=== PATIENT | female | born 1940 | race Caucasian/White ===

== ENCOUNTER → 2018-05-18 08:13 | Outpatient (CLI) | payer MEDICARE, SELFPAY ==
[2018-05-18 08:30] LABS: Add Manual Diff / Slide Review NO; Basophils Absolute Auto 100 /uL (0-100); Basophils Percent Auto 1.1 % (0-2); Eosinophils Absolute Auto 200 /uL (0-450); Eosinophils Percent Auto 2.1 % (2-4); Hematocrit 45.9 % (36-46); Hemoglobin 15.5 g/dL (12.0-16.0); Lymphocytes Absolute Auto 1700 /uL (1100-4500); Lymphocytes Percent Auto 19.3 % (25-40); Mean Corpuscular HGB Conc 33.7 % (30-36); Mean Corpuscular Hemoglobin 29.5 PG (26-34); Mean Corpuscular Volume 87.6 fL (80-100); Monocytes Absolute Auto 800 /uL (0-900); Monocytes Percent Auto 9.2 % (3-14); Neutrophils Absolute Auto 6100 /uL (1500-7000); Neutrophils Percent Auto 68.3 % (50-75); Platelet Count 268 X10^3/uL (150-400); Red Blood Cell Count 5.24 X10^6/uL (4.0-5.2); Red Cell Distribution Width 14.8 % (11.6-14.8); White Blood Cell Count 8.9 X10^3/uL (4.5-11.0)
[2018-05-18 08:47] LABS: Alanine Aminotransferase 14 IU/L (9-52); Albumin 4.1 g/dL (3.5-5.0); Albumin Globulin Ratio 1.1 (1.0-2.8); Alkaline Phosphatase 77 U/L (38-126); Aspartate Aminotransferase 16 IU/L (14-36); Bilirubin Total 0.6 mg/dL (0.2-1.3); Blood Urea Nitrogen 12 mg/dL (7-17); Calcium 9.3 mg/dL (8.4-10.2); Carbon Dioxide 31 mmol/L (22-32); Chloride 104 mmol/L (98-107); Cholesterol 231 mg/dL (140-199); Estimated Glomerular Filt Rate 43.7 mL/min (>60); Globulin 3.6 g/dL (1.7-4.1); Glucose 97 mg/dL (80-110); HDL Cholesterol 40 mg/dL (40-60); HEMOLYSIS 25 (0-50); LDL Cholesterol Calculated 154 mg/dL (<100); Potassium 5.3 mmol/L (3.4-5.1); Sodium 143 mmol/L (137-145); Total Protein 7.7 g/dL (6.3-8.2); Triglycerides 185 mg/dL (35-150)
[2018-05-18 09:33] LABS: TSH w/ Reflex to FT4 3.88 uIU/mL (0.47-4.68)
== END ==
PROVIDERS: PCP Family Medicine; Visit Provider Family Medicine
DX: I10 Essential (primary) hypertension (principal); I47.1 Supraventricular tachycardia; I63.9 Cerebral infarction, unspecified
CPT/HCPCS: 36415; 80053; 80061; 84443; 85025

== ENCOUNTER 2019-02-03 15:47 | Emergency (ER) | payer MEDICARE, SELFPAY ==
--- NOTE | 2019-02-03 15:55 | DI.RAD.S_ITS ---
PROCEDURE: XR CHEST 1V INDICATIONS: chest pain TECHNIQUE: One view of the chest was acquired. COMPARISON: [facility], CHEST 2 VIEW, 06/27/2007, 3:56. [facility], CHEST 2 VIEW, 04/13/2017, 11:02. [facility], CHEST 2 VIEW, 04/16/2017, 15:41. FINDINGS: Surgical changes and devices: None. Lungs and pleura: Mild interstitial prominence is seen. No pleural effusions or pneumothorax. Mediastinum: Mediastinal contours appear normal. Heart size is mildly enlarged. Atherosclerotic calcification of the aortic arch is noted. Bones and chest wall: No suspicious bony lesions. Age-appropriate bony degenerative changes are seen. Overlying soft tissues appear unremarkable. IMPRESSION: Mild cardiomegaly and mild interstitial prominence. Please correlate with patient presentation, physical examination findings, and laboratory values for congestive heart failure. Dictated by: Neto Barber M.D. on 02/03/2019 at 15:21 Approved by: Neto Barber M.D. on 02/03/2019 at 15:22
[2019-02-03 15:57] VITALS: BP 198/94; PULSE 94; RESP 14; TEMP 36.6; O2SAT 100; BMI 33.8
--- NOTE | 2019-02-03 16:07 | PC.NURSE ---
Pt arrives ambulatory. reports feeling lightheaded since this morning. started taking her BP about 1 hour ago and noticed it being high for her--190-200's systolic. 194/94 in triage HR 85 NSR. h/O CVA about 6 years ago treated in ED with tpa. denies taking blood thinners at this time. Denies CP and SOB but reports palpitations intermittently. Smoker. Lungs with scattered coarse expiratory rhonchi. placed on monitor technician, IV placed and labs drawn. EKG obtained and awaiting further orders.
[2019-02-03 16:12] LABS: Add Manual Diff / Slide Review NO; Basophils Absolute Auto 0 /uL (0-100); Basophils Percent Auto 0.1 % (0-2); Eosinophils Absolute Auto 400 /uL (0-450); Eosinophils Percent Auto 3.6 % (2-4); Hematocrit 45.7 % (36-46); Hemoglobin 15.4 g/dL (12.0-16.0); Lymphocytes Absolute Auto 3100 /uL (1100-4500); Lymphocytes Percent Auto 30.3 % (25-40); Mean Corpuscular HGB Conc 33.7 % (30-36); Mean Corpuscular Hemoglobin 29.5 PG (26-34); Mean Corpuscular Volume 87.4 fL (80-100); Monocytes Absolute Auto 900 /uL (0-900); Monocytes Percent Auto 9.2 % (3-14); Neutrophils Absolute Auto 5800 /uL (1500-7000); Neutrophils Percent Auto 56.8 % (50-75); Platelet Count 266 X10^3/uL (150-400); Red Blood Cell Count 5.23 X10^6/uL (4.0-5.2); Red Cell Distribution Width 14.9 % (11.6-14.8); White Blood Cell Count 10.1 X10^3/uL (4.5-11.0)
[2019-02-03 16:13] LABS: Prothrombin Time 11.5 SECONDS (10.1-12.7)
--- NOTE | 2019-02-03 16:15 | ED_ITS ---
HPI - General Adult <Jhonny Alford DO - Last Filed: 02/04/19 07:02> General Chief complaint: Hypertension Stated complaint: lightheaded,blood pressure is high Time Seen by Provider: 02/03/19 15:48 Source: patient Mode of arrival: Ambulatory Limitations: no limitations History of Present Illness HPI narrative: 79-year-old female with a history of hypertension. She states she takes metoprolol in the morning and in the evening. She did take her dose last evening and she did take her dose this morning. She has had an ischemic stroke in the past. That was many years ago. 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 She has had a carotid endarterectomy since that she currently only takes an aspirin a for this. She states that she woke up this morning feeling lightheaded. It was not a dizziness feeling. She also had some palpitations. She denies any chest pain or headache or changes in her vision or shortness of breath. She states that because she was not feeling well she took blood pressure at home. She states she normally runs with a systolic blood pressure in the 130s to 140s. Throughout the day it was 150 and higher and at 1 point the systolic blood pressures greater than 200. She called her daughter was a nurse who told her to come to the emergency department for evaluation. Related Data Previous Rx's Medication Instructions Recorded simvastatin [Zocor] 40 mg PO HS #90 tab 07/01/16 Nebulizer: Home Unit ea INH Q6H #1 04/13/17 metoprolol tartrate 50 mg tablet See Rx Instructions .ROUTE 01/30/19 .COMPLEX #180 tablet Allergies Allergy/AdvReac Type Severity Reaction Status Date / Time No Known Drug Allergies Allergy Verified 02/03/19 15:57 Review of Systems <Jhonny Alford DO - Last Filed: 02/04/19 07:02> Constitutional Constitutional: Denies chills, Denies fever(s) and Denies headache(s) Eyes Eyes: Denies change in vision ENT Ears, Nose, Mouth, and Throat: Denies headache(s) Cardiovascular Cardiovascular: Denies chest pain, Denies rapid heart rate, Denies edema, Denies leg edema, Reports lightheadedness, Reports palpitations, Denies dyspnea, Denies dyspnea on exertion and Denies orthopnea Respiratory Respiratory: Denies dyspnea and Denies dyspnea on exertion Gastrointestinal Gastrointestinal: Denies abdominal pain, Denies nausea and Denies vomiting Genitourinary Genitourinary: Denies dysuria Musculoskeletal Musculoskeletal: Denies myalgias and Denies arthralgias Integumentary/Breasts Skin/Breast: Denies lesions and Denies rash Neurologic Neurologic: Denies behavioral changes and Denies headache(s) Psychiatric Psychiatric: Denies behavioral changes Endocrine Endocrine: Reports palpitations Hematologic/Lymphatic Hematologic/Lymphatic: Denies easy bleeding and Denies easy bruising Patient History <Jhonny Alford DO - Last Filed: 02/04/19 07:02> Medical/Surgical History Medical History Carotid artery disease (Chronic) Chronic back pain (Chronic) Measles (Resolved) Osteoarthritis (Chronic ~2008) Partial blindness (Chronic ~1999) Scarlet fever (Resolved) Skin cancer (Chronic ~2009) Stroke (Chronic ~1999) Vertigo (Resolved) Vision disorder (Chronic) Surgical History (Updated 02/12/18 @ 22:13 by Leah Silverman) Anesthesia (Resolved) History of bilateral salpingo-oophorectomy (BSO) History of neck surgery (Resolved ~1999) Status post appendectomy Status post hysterectomy (~1969) Family History Brother Cancer Child Age: 51 Heart disease Father Heart disease Stroke Mother Heart disease Liver disease Social History marital status: Smoking Status: Current every day smoker alcohol intake: current (ON OCCASION ) substance use type: does not use Family/Social History Family History Brother Cancer Child Age: 51 Heart disease Father Heart disease Stroke Mother Heart disease Liver disease Social History marital status: Smoking Status: Current every day smoker alcohol intake: current (ON OCCASION ) substance use type: does not use Substance Use Type: does not use Exam <Jhonny Alford DO - Last Filed: 02/04/19 07:02> Initial Vital Signs Initial Vital Signs: Vital Signs Temperature 97.8 F 02/03/19 15:57 Pulse Rate 94 H 02/03/19 15:57 Respiratory Rate 14 02/03/19 15:57 Blood Pressure 198/94 H 02/03/19 15:57 Pulse Oximetry 100 02/03/19 15:57 Const General: cooperative, healthy appearing and comfortable Orientation: alert and awake HENMT Head: normal to inspection and normocephalic Resp Effort & Inspection: normal respiratory effort Auscultation: clear to auscultation bilaterally Cardio Rate: regular rate Rhythm: regular rhythm GI Inspection: non-distended Palpation: soft and No firm Skin Lesions: no lesions Rashes: no rashes Neuro General: alert and awake Cognition: normal cognition Speech: speech normal Extrem General: normal to inspection and capillary refill normal Psych Appearance: grossly normal and well kempt <Alondra Vega DO - Last Filed: 02/04/19 01:39> Initial Vital Signs Initial Vital Signs: Vital Signs Temperature 97.8 F 02/03/19 15:57 Pulse Rate 94 H 02/03/19 15:57 Respiratory Rate 14 02/03/19 15:57 Blood Pressure 198/94 H 02/03/19 15:57 Pulse Oximetry 100 02/03/19 15:57 Course <DO Usman Alejandre Last Filed: 02/04/19 07:02> Orders Ordered: Discontinued Medications Metoprolol Tartrate (Lopressor) 25 mg PO NOW ONE Stop: 02/03/19 17:05 Last Admin: 02/03/19 17:10 Dose: 25 mg Documented by: SOWMYA Vital Signs Vital signs: Vital Signs - 8 hr 02/03/19 18:28 02/03/19 19:49 Temperature 98.0 F Pulse Rate 60 68 Respiratory Rate 18 20 Blood Pressure 179/84 H Blood Pressure [Left Arm] 175/79 H Pulse Oximetry 98 99 <DO Usman Salguero Last Filed: 02/04/19 01:39> Orders Ordered: Discontinued Medications Metoprolol Tartrate (Lopressor) 25 mg PO NOW ONE Stop: 02/03/19 17:05 Last Admin: 02/03/19 17:10 Dose: 25 mg Documented by: SOWMYA Vital Signs Vital signs: Vital Signs - 8 hr 02/03/19 18:28 02/03/19 19:49 Temperature 98.0 F Pulse Rate 60 68 Respiratory Rate 18 20 Blood Pressure 179/84 H Blood Pressure [Left Arm] 175/79 H Pulse Oximetry 98 99 Medical Decision Making <DO Usman Alejandre Last Filed: 02/04/19 07:02> Medical Records Medical records reviewed: Yes I reviewed the patient's medical records. Lab Data Lab results reviewed: Yes I reviewed the patient's lab results. Result diagrams: 02/03/19 16:00 02/03/19 16:00 Labs: Lab Results 02/03/19 02/03/19 02/03/19 Range/Units 16:00 16:00 16:00 WBC 10.1 (4.5-11.0) X10^3/uL RBC 5.23 H (4.0-5.2) X10^6/uL Hgb 15.4 (12.0-16.0) g/dL Hct 45.7 (36-46) % MCV 87.4 (80-100) fL MCH 29.5 (26-34) PG MCHC 33.7 (30-36) % RDW 14.9 H (11.6-14.8) % Plt Count 266 (150-400) X10^3/uL Neut % (Auto) 56.8 (50-75) % Lymph % (Auto) 30.3 (25-40) % [place] % (Auto) 9.2 (3-14) % Eos % (Auto) 3.6 (2-4) % Baso % (Auto) 0.1 (0-2) % Neut # (Auto) 5800 (9788-1669) /uL Lymph # (Auto) 3100 (8169-2888) /uL [place] # (Auto) 900 (0-900) /uL Eos # (Auto) 400 (0-450) /uL Baso # (Auto) 0 (0-100) /uL PT 11.5 (10.1-12.7) SECONDS INR 1.0 (0.9-1.3) APTT 31 (26.4-36.2) SECONDS Sodium 139 (137-145) mmol/L Potassium 4.0 (3.4-5.1) mmol/L Chloride 100 (98-107) mmol/L Carbon Dioxide 27 (22-32) mmol/L BUN 12 (7-17) mg/dL Creatinine 1.00 (0.52-1.04) mg/dL Estimated GFR 53.8 L (>60) mL/min BUN/Creatinine Ratio 12.0 (6-22) Glucose 92 (80-110) mg/dL Calcium 9.6 (8.4-10.2) mg/dL Total Bilirubin 0.8 (0.2-1.3) mg/dL AST 23 (14-36) IU/L ALT 8 L (9-52) IU/L Alkaline Phosphatase 83 (38-126) U/L Total Creatine Kinase 52 (30-135) U/L CK-MB (CK-2) TNP CK-MB (CK-2) Rel Index TNP Troponin I 0.013 (0.01-0.034) ng/mL Total Protein 7.9 (6.3-8.2) g/dL Albumin 4.4 (3.5-5.0) g/dL Globulin 3.5 (1.7-4.1) g/dL Albumin/Globulin Ratio 1.3 (1.0-2.8) Lipase 60 (23-300) U/L 02/03/19 Range/Units 18:00 WBC (4.5-11.0) X10^3/uL RBC (4.0-5.2) X10^6/uL Hgb (12.0-16.0) g/dL Hct (36-46) % MCV (80-100) fL MCH (26-34) PG MCHC (30-36) % RDW (11.6-14.8) % Plt Count (150-400) X10^3/uL Neut % (Auto) (50-75) % Lymph % (Auto) (25-40) % [place] % (Auto) (3-14) % Eos % (Auto) (2-4) % Baso % (Auto) (0-2) % Neut # (Auto) (1089-7940) /uL Lymph # (Auto) (9313-6246) /uL [place] # (Auto) (0-900) /uL Eos # (Auto) (0-450) /uL Baso # (Auto) (0-100) /uL PT (10.1-12.7) SECONDS INR (0.9-1.3) APTT (26.4-36.2) SECONDS Sodium (137-145) mmol/L Potassium (3.4-5.1) mmol/L Chloride (98-107) mmol/L Carbon Dioxide (22-32) mmol/L BUN (7-17) mg/dL Creatinine (0.52-1.04) mg/dL Estimated GFR (>60) mL/min BUN/Creatinine Ratio (6-22) Glucose (80-110) mg/dL Calcium (8.4-10.2) mg/dL Total Bilirubin (0.2-1.3) mg/dL AST (14-36) IU/L ALT (9-52) IU/L Alkaline Phosphatase (38-126) U/L Total Creatine Kinase (30-135) U/L CK-MB (CK-2) CK-MB (CK-2) Rel Index Troponin I 0.016 (0.01-0.034) ng/mL Total Protein (6.3-8.2) g/dL Albumin (3.5-5.0) g/dL Globulin (1.7-4.1) g/dL Albumin/Globulin Ratio (1.0-2.8) Lipase (23-300) U/L ECG Data Attestation: I personally reviewed and interpreted this ECG as follows: Prior ECG tracings: available for review Interpretation: Sinus rhythm Ventricular rate of [address] depression V3 V4 V5 V6 ST depressions the same has an EKG from 2010 MDM Narrative Medical decision making narrative: Patient without chest pain, no headache, no focal neuro deficits that are new. Not in heart failure. ST depressions laterally on the EKG but these are not new. Initial troponin was negative. R epeat troponin ordered. Care turned over to night provider to follow up on troponin disposition. <Alondra Vega, - Last Filed: 02/04/19 01:39> Lab Data Lab results reviewed: Yes I reviewed the patient's lab results. Labs: Lab Results 02/03/19 02/03/19 02/03/19 Range/Units 16:00 16:00 16:00 WBC 10.1 (4.5-11.0) X10^3/uL RBC 5.23 H (4.0-5.2) X10^6/uL Hgb 15.4 (12.0-16.0) g/dL Hct 45.7 (36-46) % MCV 87.4 (80-100) fL MCH 29.5 (26-34) PG MCHC 33.7 (30-36) % RDW 14.9 H (11.6-14.8) % Plt Count 266 (150-400) X10^3/uL Neut % (Auto) 56.8 (50-75) % Lymph % (Auto) 30.3 (25-40) % [place] % (Auto) 9.2 (3-14) % Eos % (Auto) 3.6 (2-4) % Baso % (Auto) 0.1 (0-2) % Neut # (Auto) 5800 (0336-6016) /uL Lymph # (Auto) 3100 (8352-3911) /uL [place] # (Auto) 900 (0-900) /uL Eos # (Auto) 400 (0-450) /uL Baso # (Auto) 0 (0-100) /uL PT 11.5 (10.1-12.7) SECONDS INR 1.0 (0.9-1.3) APTT 31 (26.4-36.2) SECONDS Sodium 139 (137-145) mmol/L Potassium 4.0 (3.4-5.1) mmol/L Chloride 100 (98-107) mmol/L Carbon Dioxide 27 (22-32) mmol/L BUN 12 (7-17) mg/dL Creatinine 1.00 (0.52-1.04) mg/dL Estimated GFR 53.8 L (>60) mL/min BUN/Creatinine Ratio 12.0 (6-22) Glucose 92 (80-110) mg/dL Calcium 9.6 (8.4-10.2) mg/dL Total Bilirubin 0.8 (0.2-1.3) mg/dL AST 23 (14-36) IU/L ALT 8 L (9-52) IU/L Alkaline Phosphatase 83 (38-126) U/L Total Creatine Kinase 52 (30-135) U/L CK-MB (CK-2) TNP CK-MB (CK-2) Rel Index TNP Troponin I 0.013 (0.01-0.034) ng/mL Total Protein 7.9 (6.3-8.2) g/dL Albumin 4.4 (3.5-5.0) g/dL Globulin 3.5 (1.7-4.1) g/dL Albumin/Globulin Ratio 1.3 (1.0-2.8) Lipase 60 (23-300) U/L 02/03/19 Range/Units 18:00 WBC (4.5-11.0) X10^3/uL RBC (4.0-5.2) X10^6/uL Hgb (12.0-16.0) g/dL Hct (36-46) % MCV (80-100) fL MCH (26-34) PG MCHC (30-36) % RDW (11.6-14.8) % Plt Count (150-400) X10^3/uL Neut % (Auto) (50-75) % Lymph % (Auto) (25-40) % [place] % (Auto) (3-14) % Eos % (Auto) (2-4) % Baso % (Auto) (0-2) % Neut # (Auto) (3516-6220) /uL Lymph # (Auto) (3398-5796) /uL [place] # (Auto) (0-900) /uL Eos # (Auto) (0-450) /uL Baso # (Auto) (0-100) /uL PT (10.1-12.7) SECONDS INR (0.9-1.3) APTT (26.4-36.2) SECONDS Sodium (137-145) mmol/L Potassium (3.4-5.1) mmol/L Chloride (98-107) mmol/L Carbon Dioxide (22-32) mmol/L BUN (7-17) mg/dL Creatinine (0.52-1.04) mg/dL Estimated GFR (>60) mL/min BUN/Creatinine Ratio (6-22) Glucose (80-110) mg/dL Calcium (8.4-10.2) mg/dL Total Bilirubin (0.2-1.3) mg/dL AST (14-36) IU/L ALT (9-52) IU/L Alkaline Phosphatase (38-126) U/L Total Creatine Kinase (30-135) U/L CK-MB (CK-2) CK-MB (CK-2) Rel Index Troponin I 0.016 (0.01-0.034) ng/mL Total Protein (6.3-8.2) g/dL Albumin (3.5-5.0) g/dL Globulin (1.7-4.1) g/dL Albumin/Globulin Ratio (1.0-2.8) Lipase (23-300) U/L Imaging Data Chest x-ray: Radiologist's impression: PROCEDURE: XR CHEST 1V INDICATIONS: chest pain TECHNIQUE: One view of the chest was acquired. COMPARISON: [facility], CHEST 2 VIEW, 06/27/2007, 3:56. [facility], CHEST 2 VIEW, 04/13/2017, 11:02. [facility], CHEST 2 VIEW, 04/16/2017, 15:41. FINDINGS: Surgical changes and devices: None. Lungs and pleura: Mild interstitial prominence is seen. No pleural effusions or pneumothorax. Mediastinum: Mediastinal contours appear normal. Heart size is mildly enlarged. Atherosclerotic calcification of the aortic arch is noted. Bones and chest wall: No suspicious bony lesions. Age-appropriate bony degenerative changes are seen. Overlying soft tissues appear unremarkable. IMPRESSION: Mild cardiomegaly and mild interstitial prominence. Please correlate with patient presentation, physical examination findings, and laboratory values for congestive heart failure. Dictated by: Neto Barber M.D. on 02/03/2019 at 15:21 MDM Narrative Additional Information: Patient signed out to me by Dr. Alford. I have seen evaluated patient myself. She overall is feeling better she did receive 1 dose of Lopressor in the ED blood pressure has decreased some. She has no focal deficits no concern for CVA. She has no chest pain. Repeat troponin continues to be negative very minimal change. At this time I recommend she check her blood pressure at home and follow up closely with her PCP she may require adjustments to her medication. I discussed all findings with the patient and , Education has been performed regarding treatment plan, diagnosis, warning signs and symptoms and a ll concerns have been addressed. Verbally agree with and understood all of the above. Discharge Plan Departure Patient Disposition: Home Clinical Impression: Hypertension Qualifiers: Hypertension type: essential hypertension Qualified Code(s): I10 - Essential (primary) hypertension Discharge Date/Time: 02/03/19 19:50 Instructions: DI for High Blood Pressure Activity Restrictions/Additional Instructions: Recommend that you continue all of your medications as directed. On Tuesday contact your primary provider for follow-up. Return to the emergency department for any new or worsening symptoms Take your nightly dose of blood pressure medication as prescribed Recommend taking blood pressure once daily recording it and bring in to your PCP you may require further blood pressure medication changes Prescriptions: No Action simvastatin [Zocor] 40 MG tablet 40 mg PO HS Qty: 90 RF: 3 Nebulizer: Home Unit INH Q6H Qty: 1 RF: 99 metoprolol tartrate 50 mg tablet See Rx Instructions .ROUTE .COMPLEX Qty: 180 RF: 1 Referrals: Brian Ordonez MD [Primary Care Provider] -
[2019-02-03 16:16] LABS: PTT Partial Thromboplastin Tim 31 SECONDS (26.4-36.2)
[2019-02-03 16:24] LABS: Alanine Aminotransferase 8 IU/L (9-52); Albumin 4.4 g/dL (3.5-5.0); Albumin Globulin Ratio 1.3 (1.0-2.8); Alkaline Phosphatase 83 U/L (38-126); Aspartate Aminotransferase 23 IU/L (14-36); Bilirubin Total 0.8 mg/dL (0.2-1.3); Blood Urea Nitrogen 12 mg/dL (7-17); Calcium 9.6 mg/dL (8.4-10.2); Carbon Dioxide 27 mmol/L (22-32); Chloride 100 mmol/L (98-107); Creatine Kinase 52 U/L (30-135); Estimated Glomerular Filt Rate 53.8 mL/min (>60); Globulin 3.5 g/dL (1.7-4.1); Glucose 92 mg/dL (80-110); Lipase 60 U/L (23-300); Sodium 139 mmol/L (137-145); Total Protein 7.9 g/dL (6.3-8.2)
[2019-02-03 16:26] LABS: HEMOLYSIS 65 (0-50)
[2019-02-03 16:35] LABS: Troponin I 0.013 ng/mL (0.01-0.034)
[2019-02-03 16:42] VITALS: BP 188/80; PULSE 62; RESP 16; O2SAT 98
[2019-02-03] MEDS: METOPROLOL IR 25 MG TABLET PO (17:10)
[2019-02-03 17:14] VITALS: BP 189/77; PULSE 66; O2SAT 98
--- NOTE | 2019-02-03 18:07 | PC.NURSE ---
2nd trop drawn and sent. pt OOB to BR with stready gait. appear well. denies pain at this time. will continue to monitor
[2019-02-03 18:28] VITALS: BP 175/79; PULSE 60; RESP 18; O2SAT 98
[2019-02-03 19:22] LABS: Troponin I 0.016 ng/mL (0.01-0.034)
[2019-02-03 19:49] VITALS: BP 179/84; PULSE 68; RESP 20; TEMP 36.7; O2SAT 99
== END 2019-02-03 19:50 | disposition home or self-care (01) ==
PROVIDERS: Emergency Medicine; Emergency Provider Emergency Medicine; Family Provider Family Medicine; PCP Family Medicine
DX: I10 Essential (primary) hypertension (principal); R07.9 Chest pain, unspecified
CPT/HCPCS: 36415; 71045; 80053; 82550; 83690; 84484; 85025; 85610; 85730; 93005; 99283; 99285

== ENCOUNTER → 2020-05-26 12:01 | Outpatient (CLI) | payer MEDICARE, SELFPAY ==
[2020-05-26 12:47] LABS: Add Manual Diff / Slide Review NO; Basophils Absolute Auto 100 /uL (0-100); Basophils Percent Auto 1.2 % (0-2); Eosinophils Absolute Auto 200 /uL (0-450); Eosinophils Percent Auto 2.4 % (2-4); Hematocrit 41.7 % (36-46); Hemoglobin 14.2 g/dL (12.0-16.0); Lymphocytes Absolute Auto 2100 /uL (1100-4500); Lymphocytes Percent Auto 24.7 % (25-40); Mean Corpuscular HGB Conc 34.1 % (30-36); Mean Corpuscular Hemoglobin 29.9 PG (26-34); Mean Corpuscular Volume 87.7 fL (80-100); Monocytes Absolute Auto 700 /uL (0-900); Monocytes Percent Auto 8.1 % (3-14); Neutrophils Absolute Auto 5400 /uL (1500-7000); Neutrophils Percent Auto 63.6 % (50-75); Platelet Count 231 X10^3/uL (150-400); Red Blood Cell Count 4.75 X10^6/uL (4.0-5.2); Red Cell Distribution Width 14.5 % (11.6-14.8); White Blood Cell Count 8.5 X10^3/uL (4.5-11.0)
[2020-05-26 13:41] LABS: Alanine Aminotransferase 11 IU/L (<35); Albumin Globulin Ratio 1.5 (1.0-2.8); Alkaline Phosphatase 68 U/L (38-126); Aspartate Aminotransferase 17 IU/L (14-36); BUN Creatinine Ratio 15.9 (6-22); Bilirubin Total 0.4 mg/dL (0.2-1.3); Blood Urea Nitrogen 18 mg/dL (7-17); Calcium 9.1 mg/dL (8.4-10.2); Carbon Dioxide 30 mmol/L (22-32); Chloride 102 mmol/L (98-107); Estimated Glomerular Filt Rate 46.6 mL/min (>60); Globulin 2.6 g/dL (1.7-4.1); Glucose 112 mg/dL (80-110); HEMOLYSIS < 15 (0-50); Sodium 140 mmol/L (137-145); Total Protein 6.6 g/dL (6.3-8.2)
[2020-05-26 14:11] LABS: TSH w/ Reflex to FT4 2.35 uIU/mL (0.47-4.68)
== END ==
PROVIDERS: Family Provider Family Medicine; PCP Family Medicine; Referring Provider Family Medicine; Visit Provider Family Medicine
DX: I10 Essential (primary) hypertension (principal); I63.9 Cerebral infarction, unspecified
CPT/HCPCS: 36415; 80053; 84443; 85025

== ENCOUNTER → 2021-01-07 07:07 | Outpatient (CLI) | payer MEDICARE, SELFPAY ==
[2021-01-07 08:57] LABS: BUN Creatinine Ratio 11.3 (6-22); Blood Urea Nitrogen 13 mg/dL (7-17); Calcium 9.4 mg/dL (8.4-10.2); Carbon Dioxide 32 mmol/L (22-32); Chloride 106 mmol/L (98-107); Cholesterol 233 mg/dL (140-199); Estimated Glomerular Filt Rate 45.6 mL/min (>60); Glucose 85 mg/dL (80-110); HDL Cholesterol 42 mg/dL (40-60); HEMOLYSIS < 15 (0-50); LDL Cholesterol Calculated 155 mg/dL (<100); Sodium 142 mmol/L (137-145); Triglycerides 180 mg/dL (35-150)
== END ==
PROVIDERS: Family Provider Family Medicine; PCP Family Medicine; Referring Provider Family Medicine; Visit Provider Family Medicine
DX: E78.2 Mixed hyperlipidemia (principal); I10 Essential (primary) hypertension; N18.9 Chronic kidney disease, unspecified
CPT/HCPCS: 36415; 80048; 80061

== ENCOUNTER 2021-02-01 06:48 | Emergency (ER) | payer MEDICARE, SELFPAY ==
[2021-02-01] VITALS (21 sets, daily range): BP systolic 194–245; BP diastolic 83–112; PULSE 52–63; RESP 16–30; TEMP 36.9; O2SAT 93–99
--- NOTE | 2021-02-01 07:30 | ED.GENADULT ---
HPI - General Adult General Chief complaint: Hypertension Stated complaint: blood pressure high x2 days Time Seen by Provider: 02/01/21 06:56 Source: patient Mode of arrival: Ambulatory History of Present Illness HPI narrative: Patient is a 81-year-old female. History of high blood pressure. States she only takes metoprolol twice a day for her blood pressure. She states that yesterday she took her morning dose of the medicine. During the afternoon she stood up became somewhat lightheaded. She took her blood pressure and it will was 190 over 90s. She states the lightheadedness resolved. Had no other symptoms throughout the day/night. Did take her evening dose of metoprolol yesterday afternoon. Woke up this morning. Has no symptoms. Took her blood pressure. Was elevated once again. Took an extra dose of her metoprolol this morning. She states that her primary doctor told her that she could do this. She has no headache. No chest pain. No shortness of breath. No lower extremity swelling. 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 No other new neurologic symptoms to include numbness and tingling in her arms or legs. Afebrile. She does have back pain. This is been going on for several weeks. She has had diverticulitis in the past. She states that this is similar to when she had diverticulitis. She is also constipated. No urinary symptoms. No nausea vomiting. No blood in her stool. The last time she had diverticulitis she did have an abscess that needed drained. Related Data Previous Rx's Medication Instructions Recorded metoprolol tartrate 50 mg tablet See Rx Instructions .ROUTE 07/30/19 .COMPLEX #180 tablet atorvastatin 40 mg tablet 40 mg PO DAILY #90 tab 11/27/19 lisinopril 10 mg tablet 10 mg PO DAILY #90 tab 05/30/20 amoxicillin 875 mg-potassium 1 tab PO Q12H 10 Days #20 tab 02/01/21 clavulanate 125 mg tablet (Augmentin) Allergies Allergy/AdvReac Type Severity Reaction Status Date / Time No Known Drug Allergies Allergy Verified 05/30/20 08:47 Review of Systems Constitutional Constitutional: Denies fever(s) and Denies headache(s) Eyes Eyes: Reports system reviewed and no additional complaints, except as documented ENT Ears, Nose, Mouth, and Throat: Reports system reviewed and no additional complaints, except as documented, Reports as per HPI and Denies headache(s) Cardiovascular Cardiovascular: Reports as per HPI and Reports system reviewed and no additional complaints, except as documented Respiratory Respiratory: Reports as per HPI and Reports system reviewed and no additional complaints, except as documented Gastrointestinal Gastrointestinal: Reports as per HPI and Reports system reviewed and no additional complaints, except as documented Genitourinary Genitourinary: Reports system reviewed and no additional complaints, except as documented Musculoskeletal Musculoskeletal: Reports system reviewed and no additional complaints, except as documented Integumentary/Breasts Skin/Breast: Reports system reviewed and no additional complaints, except as documented Neurologic Neurologic: Denies headache(s) Psychiatric Psychiatric: Reports system reviewed and no additional complaints, except as documented Hematologic/Lymphatic On Anticoagulants: No Allergic/Immunologic Allergic/Immunologic: Reports system reviewed and no additional complaints, except as documented Patient History Medical History Carotid artery disease Chronic back pain Measles Osteoarthritis (~2008) Partial blindness (~1999) Pyelonephritis Scarlet fever Skin cancer (~2009) Stroke (~1999) Vertigo Vision disorder Surgical History (Updated 02/12/18 @ 22:13 by Leah Silverman) Anesthesia History of bilateral salpingo-oophorectomy (BSO) History of neck surgery (~1999) Status post appendectomy Status post hysterectomy (~1969) Family History Brother Cancer Child Age: 53 Heart disease Father Heart disease Stroke Mother Heart disease Liver disease Social History marital status: Smoking Status: Current every day smoker alcohol intake: current substance use type: does not use Smoking Status: Current every day smoker Substance Use Type: does not use Exam Initial Vital Signs Initial Vital Signs: Vital Signs Temperature 98.4 F 02/01/21 07:20 Pulse Rate 61 02/01/21 07:20 Respiratory Rate 22 02/01/21 07:20 Blood Pressure 245/112 H 02/01/21 07:20 Pulse Oximetry 99 02/01/21 07:20 Const General: cooperative, healthy appearing and comfortable [facility] Head: normal to inspection and normocephalic Eyes General: appearance normal, both eyes and all related structures Resp Effort & Inspection: normal respiratory effort Auscultation: clear to auscultation bilaterally Cardio Rate: regular rate Rhythm: regular rhythm GI Inspection: normal to inspection Back/Spine/Pelvis Back: normal to inspection Skin General: no rashes or lesions noted Neuro General: patient alert, patient awake, patient oriented x3 and moves all extremities Extrem General: normal to inspection and capillary refill normal Psych Appearance: grossly normal and well kempt Course Orders Ordered: ED Orders 02/01/21 07:30 Complete Blood Count AUTO DIFF Stat Comprehensive Metabolic Panel Stat Lipase Stat Troponin & CK Cardiac Panel Stat 02/01/21 07:35 XR chest 1V Stat EKG-12 Lead Stat 02/01/21 07:42 CT abdomen pelvis w con Stat Discontinued Medications Sodium Chloride (Normal Saline 0.9%) 1,000 mls @ 1,000 mls/hr IV BOLUS ONE Stop: 02/01/21 08:41 Last Infusion: 02/01/21 10:22 Dose: 0 mls/hr Documented by: Admin: 02/01/21 08:05 Dose: 1,000 mls/hr Documented by: BINA Lisinopril (Lisinopril 10 Mg Tablet) 10 mg PO NOW ONE Stop: 02/01/21 07:44 Last Admin: 02/01/21 08:03 Dose: 10 mg Documented by: BINA Vital Signs Vital signs: Vital Signs - 8 hr 02/01/21 07:20 02/01/21 07:36 02/01/21 08:00 Temperature 98.4 F Pulse Rate 61 60 56 L Respiratory Rate 22 27 H 29 H Blood Pressure 245/112 H 233/107 H Pulse Oximetry 99 99 98 02/01/21 08:03 02/01/21 08:04 02/01/21 08:28 Temperature Pulse Rate 56 L 56 L 60 Respiratory Rate 30 H Blood Pressure 229/102 H 229/102 H Pulse Oximetry 98 98 02/01/21 08:34 02/01/21 08:36 02/01/21 08:45 Temperature Pulse Rate 61 57 L 53 L Respiratory Rate Blood Pressure 221/93 H 206/83 H Pulse Oximetry 97 99 98 02/01/21 09:00 02/01/21 09:01 02/01/21 09:15 Temperature Pulse Rate 53 L 54 L 54 L Respiratory Rate Blood Pressure 208/84 H 199/88 H Pulse Oximetry 98 98 98 02/01/21 09:30 02/01/21 09:45 02/01/21 09:52 Temperature Pulse Rate 52 L 63 60 Respiratory Rate 18 Blood Pressure 196/85 H 195/104 H Pulse Oximetry 98 93 97 02/01/21 10:00 02/01/21 10:15 02/01/21 10:16 Temperature Pulse Rate 59 L 54 L Respiratory Rate 18 16 Blood Pressure 226/91 H 219/90 H Pulse Oximetry 97 97 Medical Decision Making Lab Data Lab results reviewed: Yes I reviewed the patient's lab results. Result diagrams: 02/01/21 07:30 02/01/21 07:30 Labs: Lab Results 02/01/21 02/01/21 Range/Units 07:30 07:30 WBC 8.6 (4.5-11.0) X10^3/uL RBC 5.31 H (4.0-5.2) X10^6/uL Hgb 15.6 (12.0-16.0) g/dL Hct 46.6 H (36-46) % MCV 87.8 (80-100) fL MCH 29.3 (26-34) PG MCHC 33.4 (30-36) % RDW 15.2 H (11.6-14.8) % Plt Count 274 (150-400) X10^3/uL Neut % (Auto) 71.0 (50-75) % Lymph % (Auto) 17.1 L (25-40) % [place] % (Auto) 8.9 (3-14) % Eos % (Auto) 2.2 (2-4) % Baso % (Auto) 0.8 (0-2) % Neut # (Auto) 6100 (6415-7480) /uL Lymph # (Auto) 1500 (0303-5035) /uL [place] # (Auto) 800 (0-900) /uL Eos # (Auto) 200 (0-450) /uL Baso # (Auto) 100 (0-100) /uL Sodium 137 (137-145) mmol/L Potassium 4.1 (3.4-5.1) mmol/L Chloride 101 (98-107) mmol/L Carbon Dioxide 31 (22-32) mmol/L BUN 11 (7-17) mg/dL Creatinine 1.02 (0.52-1.04) mg/dL Estimated GFR 52.3 L (>60) mL/min BUN/Creatinine Ratio 10.8 (6-22) Glucose 105 (80-110) mg/dL Calcium 9.5 (8.4-10.2) mg/dL Total Bilirubin 0.7 (0.2-1.3) mg/dL AST 19 (14-36) IU/L ALT 10 (<35) IU/L Alkaline Phosphatase 86 (38-126) U/L Total Creatine Kinase 36 (30-135) U/L CK-MB (CK-2) TNP CK-MB (CK-2) Rel Index TNP Troponin I < 0.012 (0.01-0.034) ng/mL Total Protein 7.5 (6.3-8.2) g/dL Albumin 4.3 (3.5-5.0) g/dL Globulin 3.2 (1.7-4.1) g/dL Albumin/Globulin Ratio 1.3 (1.0-2.8) Lipase 66 (23-300) U/L Imaging Data Chest x-ray: Radiologist's Impression: [address] [id number] ReportSigned Patient: Stefanie Galaviz [facility]#: [id number]: 2Acct:[id number]/Sex: 81 / FDate of Service: 02/01/21Loc: EDAccession Number: [id number] Procedure: XR chest 1V Ordering Provider: Jhonny Alford D.O. PROCEDURE: XR CHEST 1V INDICATIONS: chest pain TECHNIQUE: One view of the chest was acquired. COMPARISON: [facility], CHEST 2 VIEW, 04/13/2017, 11:02. [facility], CHEST 2 VIEW, 04/16/2017, 15:41. [facility], XR CHEST 1V, 02/03/2019, 16:15. FINDINGS: Surgical changes and devices: None. Lungs and pleura: On this semiupright portable chest examination, no large pneumothorax or large pleural effusions are seen. No focal infiltrates are seen. Mediastinum: The cardiac contours are within normal limits for portable technique. The aorta demonstrates calcification and tortuosity. Bones and chest wall: Age-appropriate bony degenerative changes are seen. No suspicious bony lesions. Overlying soft tissues appear unremarkable. IMPRESSION: Portable chest within normal limits. Dictated by: Neto Barber M.D. on 02/01/2021 at 7:09 Approved by: Neto Barber M.D. on 02/01/2021 at 7:10 CT scan - abdomen/pelvis: Radiologist's Impression: [address] [id number] Scan ReportSigned Patient: Stefanie Galaviz [facility]#: [id number]: 1940cct:[id number]/Sex: 81 / FDate of Service: 02/01/21Loc: EDAccession Number: [id number] Procedure: CT abdomen pelvis w con Ordering Provider: Jhonny Alford D.O. PROCEDURE: CT ABDOMEN PELVIS W CON INDICATIONS: Left-sided abdominal pain, back pain TECHNIQUE: After the administration of oral and IV contrast, axial sections were acquired from the lung bases to the pubic symphysis. Coronal and sagittal reformats were performed. For radiation dose reduction, the following was used: automated exposure control, adjustment of mA and/or kV according to patient size. COMPARISON: [facility], CT, ABDOMEN/PELVIS WITH CONTRAST, 04/16/2017, 17:18. FINDINGS: Image quality: Excellent. Lung bases: Mild emphysematous changes are seen at the lung bases. Heart: No significant findings. ABDOMEN: Liver: Unremarkable. Gallbladder: Unremarkable. Biliary ducts: Unremarkable. Pancreas: Unremarkable. Spleen: Unremarkable. Adrenal Glands: Unremarkable. Kidneys and Ureters: Areas of focal volume loss can be seen involving the renal parenchyma, left worse than right. No suspicious masses are seen. There is no hydronephrosis. Stomach and Bowel: There is moderate wall thickening seen involving the sigmoid colon, with mild surrounding inflammatory change. No adjacent abscess is seen. Moderate diverticular formation can be seen throughout this region. No areas of bowel wall thickening are seen elsewhere. No dilated loops of small bowel are seen. Peritoneum: No abnormal intraperitoneal fluid. No free air. Ventral Wall: No hernia. Abdominal Nodes: No retroperitoneal or mesenteric adenopathy by size criteria. Vessels: The aorta demonstrates calcification and irregularity, with mural thrombus. The aorta is mildly aneurysmal, measuring up to 3.3 cm AP. The IVC is unremarkable. PELVIS: Pelvic Organs: This patient is status post hysterectomy. No adnexal masses are seen. Bladder: Unremarkable. Pelvic Nodes: No enlarged lymph nodes. Miscellaneous: No inguinal hernias are seen. Bones: Age-appropriate bony degenerative changes are seen. Qihp-ig-[id number] levoconvex scoliotic curvature is seen. There is a remote T11 compression deformity as well as a stable remote L2 compression deformity. A presumed hemangioma can be seen within T10. IMPRESSION: Izqv-mu-sntrcvvs diverticulitis, without findings of perforation or abscess. Areas of focal volume loss can be seen involving both kidneys, left worse than right. Please correlate with prior episodes of infarction or infection. Irregular aorta, with mild aneurysmal dilatation and mural thrombus, which has worsened compared to 2017. Incidental note is made of: Mild emphysematous change Apparent T10 vertebral body hemangioma Remote T11 and L2 compression deformities Hysterectomy Dictated by: Neto Barber M.D. on 02/01/2021 at 7:58 Approved by: Neto Barber M.D. on 02/01/2021 at 8:04 ECG Data Attestation: I personally reviewed and interpreted this ECG as follows: Interpretation: Sinus bradycardia Ventricular rate of 58 Normal axis Normal QRS Normal QTC Artifact noted No ST T wave changes MDM Narrative Medical decision making narrative: Patient is asymptomatic from her hypertension. She is on metoprolol as well as lisinopril. Her CT scan does show diverticulitis. We will treat her with antibiotics for this. Also shows a abdominal aortic aneurysm which I do not think is the cause of her back pain. Will have her contact her primary doctor for this. Will increase her lisinopril from 10 mg a day to 20 mg a day. She was given return precautions and follow-up instructions. She expressed understanding and agreement Discharge Plan Departure Patient Disposition: Home Clinical Impression: Hypertension, Abdominal aortic aneurysm, Diverticulitis Instructions: DI for Diverticulitis, DI for High Blood Pressure Activity Restrictions/Additional Instructions: Start taking the antibiotics as directed for the diverticulitis. This evening go ahead and take your normal evening dose of your metoprolol. Starting tomorrow increase your lisinopril from 10 mg a day to 20 mg a day. There was a incidental finding of a abdominal aortic aneurysm on your CT scan today. You do need to talk with your primary doctor regarding this as far as follow-up. Return to the emergency department for any new or worsening symptoms. Prescriptions: New amoxicillin-pot clavulanate [Augmentin] 875-125 mg tablet 1 tab PO Q12H 10 Days Qty: 20 RF: 0 No Action atorvastatin 40 mg tablet 40 mg PO DAILY Qty: 90 RF: 3 lisinopril 10 mg tablet 10 mg PO DAILY Qty: 90 RF: 3 metoprolol tartrate 50 mg tablet See Rx Instructions .ROUTE .COMPLEX Qty: 180 RF: 1 Referrals: Brian Ordonez MD [Primary Care Provider] -
--- NOTE | 2021-02-01 07:35 | DI.RAD.S_ITS ---
PROCEDURE: XR CHEST 1V INDICATIONS: chest pain TECHNIQUE: One view of the chest was acquired. COMPARISON: [facility], , CHEST 2 VIEW, 04/13/2017, 11:02. [facility], , CHEST 2 VIEW, 04/16/2017, 15:41. [facility], , XR CHEST 1V, 02/03/2019, 16:15. FINDINGS: Surgical changes and devices: None. Lungs and pleura: On this semiupright portable chest examination, no large pneumothorax or large pleural effusions are seen. No focal infiltrates are seen. Mediastinum: The cardiac contours are within normal limits for portable technique. The aorta demonstrates calcification and tortuosity. Bones and chest wall: Age-appropriate bony degenerative changes are seen. No suspicious bony lesions. Overlying soft tissues appear unremarkable. IMPRESSION: Portable chest within normal limits. Dictated by: Neto Barber M.D. on 02/01/2021 at 7:09 Approved by: Neto Barber M.D. on 02/01/2021 at 7:10
--- NOTE | 2021-02-01 07:42 | DI.CT.S_ITS ---
PROCEDURE: CT ABDOMEN PELVIS W CON INDICATIONS: Left-sided abdominal pain, back pain TECHNIQUE: After the administration of oral and IV contrast, axial sections were acquired from the lung bases to the pubic symphysis. Coronal and sagittal reformats were performed. For radiation dose reduction, the following was used: automated exposure control, adjustment of mA and/or kV according to patient size. COMPARISON: [facility], CT, ABDOMEN/PELVIS WITH CONTRAST, 04/16/2017, 17:18. FINDINGS: Image quality: Excellent. Lung bases: Mild emphysematous changes are seen at the lung bases. Heart: No significant findings. ABDOMEN: Liver: Unremarkable. Gallbladder: Unremarkable. Biliary ducts: Unremarkable. Pancreas: Unremarkable. Spleen: Unremarkable. Adrenal Glands: Unremarkable. Kidneys and Ureters: Areas of focal volume loss can be seen involving the renal parenchyma, left worse than right. No suspicious masses are seen. There is no hydronephrosis. Stomach and Bowel: There is moderate wall thickening seen involving the sigmoid colon, with mild surrounding inflammatory change. No adjacent abscess is seen. Moderate diverticular formation can be seen throughout this region. No areas of bowel wall thickening are seen elsewhere. No dilated loops of small bowel are seen. Peritoneum: No abnormal intraperitoneal fluid. No free air. Ventral Wall: No hernia. Abdominal Nodes: No retroperitoneal or mesenteric adenopathy by size criteria. Vessels: The aorta demonstrates calcification and irregularity, with mural thrombus. The aorta is mildly aneurysmal, measuring up to 3.3 cm AP. The IVC is unremarkable. PELVIS: Pelvic Organs: This patient is status post hysterectomy. No adnexal masses are seen. Bladder: Unremarkable. Pelvic Nodes: No enlarged lymph nodes. Miscellaneous: No inguinal hernias are seen. Bones: Age-appropriate bony degenerative changes are seen. Xevm-kv-bgvlixqj levoconvex scoliotic curvature is seen. There is a remote T11 compression deformity as well as a stable remote L2 compression deformity. A presumed hemangioma can be seen within T10. IMPRESSION: Seqt-jg-leqhukry diverticulitis, without findings of perforation or abscess. Areas of focal volume loss can be seen involving both kidneys, left worse than right. Please correlate with prior episodes of infarction or infection. Irregular aorta, with mild aneurysmal dilatation and mural thrombus, which has worsened compared to 2017. Incidental note is made of: Mild emphysematous change Apparent T10 vertebral body hemangioma Remote T11 and L2 compression deformities Hysterectomy Dictated by: Neto Barber M.D. on 02/01/2021 at 7:58 Approved by: Neto Barber M.D. on 02/01/2021 at 8:04
[2021-02-01 07:45] LABS: Add Manual Diff / Slide Review NO; Basophils Absolute Auto 100 /uL (0-100); Basophils Percent Auto 0.8 % (0-2); Eosinophils Absolute Auto 200 /uL (0-450); Eosinophils Percent Auto 2.2 % (2-4); Hematocrit 46.6 % (36-46); Hemoglobin 15.6 g/dL (12.0-16.0); Lymphocytes Absolute Auto 1500 /uL (1100-4500); Lymphocytes Percent Auto 17.1 % (25-40); Mean Corpuscular HGB Conc 33.4 % (30-36); Mean Corpuscular Hemoglobin 29.3 PG (26-34); Mean Corpuscular Volume 87.8 fL (80-100); Monocytes Absolute Auto 800 /uL (0-900); Monocytes Percent Auto 8.9 % (3-14); Neutrophils Absolute Auto 6100 /uL (1500-7000); Platelet Count 274 X10^3/uL (150-400); Red Blood Cell Count 5.31 X10^6/uL (4.0-5.2); Red Cell Distribution Width 15.2 % (11.6-14.8); White Blood Cell Count 8.6 X10^3/uL (4.5-11.0)
[2021-02-01 07:58] LABS: Alanine Aminotransferase 10 IU/L (<35); Albumin 4.3 g/dL (3.5-5.0); Albumin Globulin Ratio 1.3 (1.0-2.8); Alkaline Phosphatase 86 U/L (38-126); Aspartate Aminotransferase 19 IU/L (14-36); BUN Creatinine Ratio 10.8 (6-22); Bilirubin Total 0.7 mg/dL (0.2-1.3); Blood Urea Nitrogen 11 mg/dL (7-17); Calcium 9.5 mg/dL (8.4-10.2); Carbon Dioxide 31 mmol/L (22-32); Chloride 101 mmol/L (98-107); Creatine Kinase 36 U/L (30-135); Estimated Glomerular Filt Rate 52.3 mL/min (>60); Globulin 3.2 g/dL (1.7-4.1); Glucose 105 mg/dL (80-110); HEMOLYSIS < 15 (0-50); Lipase 66 U/L (23-300); Potassium 4.1 mmol/L (3.4-5.1); Sodium 137 mmol/L (137-145); Total Protein 7.5 g/dL (6.3-8.2)
[2021-02-01] MEDS: lisinopriL 10 MG TABLET PO (08:03)
[2021-02-01] MEDS: SODIUM CHLORIDE 0.9% 1,000 ML 1000 ML IV (08:05)
[2021-02-01 08:09] LABS: Troponin I < 0.012 ng/mL (0.01-0.034)
== END 2021-02-01 11:29 | disposition home or self-care (01) ==
PROVIDERS: Emergency Provider Emergency Medicine; Family Provider Family Medicine; PCP Family Medicine
DX: I10 Essential (primary) hypertension (principal); I71.4 Abdominal aortic aneurysm, without rupture; K57.92 Diverticulitis of intestine, part unspecified, without perforation or abscess without bleeding; R07.9 Chest pain, unspecified
CPT/HCPCS: 36415; 71045; 74177; 80053; 82550; 83690; 84484; 85025; 93005; 96360; 96361; 99285; Q9967

== ENCOUNTER 2021-02-02 11:28 | Emergency (ER) | payer MEDICARE, SELFPAY ==
[2021-02-02] VITALS (8 sets, daily range): BP systolic 159–242; BP diastolic 74–108; PULSE 55–70; RESP 14–21; TEMP 36.8; O2SAT 97–99; BMI 32.9
--- NOTE | 2021-02-02 11:40 | DI.RAD.S_ITS ---
PROCEDURE: XR CHEST 1V INDICATIONS: chest pain TECHNIQUE: One view of the chest was acquired. COMPARISON: [facility], CR, XR CHEST 1V, 02/03/2019, 16:15. [facility], CR, XR CHEST 1V, 02/01/2021, 7:52. FINDINGS: Surgical changes and devices: None. Lungs and pleura: Lungs are clear. No pleural effusions or pneumothorax. Mediastinum: Mediastinal contours appear normal. Heart size is normal. Bones and chest wall: No suspicious bony lesions. Overlying soft tissues appear unremarkable. IMPRESSION: 1. No acute cardiopulmonary disease. Dictated by: Fredo Villalta M.D. on 02/02/2021 at 12:03 Approved by: Fredo Villalta M.D. on 02/02/2021 at 12:04
[2021-02-02 11:57] LABS: Add Manual Diff / Slide Review NO; Basophils Absolute Auto 0 /uL (0-100); Basophils Percent Auto 0.3 % (0-2); Eosinophils Absolute Auto 200 /uL (0-450); Eosinophils Percent Auto 2.3 % (2-4); Hematocrit 46.1 % (36-46); Hemoglobin 15.5 g/dL (12.0-16.0); Lymphocytes Absolute Auto 2000 /uL (1100-4500); Lymphocytes Percent Auto 21.9 % (25-40); Mean Corpuscular HGB Conc 33.7 % (30-36); Mean Corpuscular Hemoglobin 29.7 PG (26-34); Monocytes Absolute Auto 800 /uL (0-900); Monocytes Percent Auto 8.6 % (3-14); Neutrophils Absolute Auto 6200 /uL (1500-7000); Neutrophils Percent Auto 66.9 % (50-75); Platelet Count 262 X10^3/uL (150-400); Red Blood Cell Count 5.24 X10^6/uL (4.0-5.2); Red Cell Distribution Width 14.4 % (11.6-14.8); White Blood Cell Count 9.3 X10^3/uL (4.5-11.0)
[2021-02-02 12:27] LABS: Alanine Aminotransferase 12 IU/L (<35); Albumin 4.3 g/dL (3.5-5.0); Albumin Globulin Ratio 1.3 (1.0-2.8); Alkaline Phosphatase 93 U/L (38-126); Aspartate Aminotransferase 24 IU/L (14-36); BUN Creatinine Ratio 12.6 (6-22); Bilirubin Total 0.8 mg/dL (0.2-1.3); Blood Urea Nitrogen 13 mg/dL (7-17); Calcium 9.9 mg/dL (8.4-10.2); Carbon Dioxide 28 mmol/L (22-32); Chloride 102 mmol/L (98-107); Creatine Kinase 40 U/L (30-135); Estimated Glomerular Filt Rate 51.7 mL/min (>60); Globulin 3.3 g/dL (1.7-4.1); Glucose 98 mg/dL (80-110); HEMOLYSIS < 15 (0-50); Lipase 70 U/L (23-300); Magnesium 1.9 mg/dL (1.6-2.3); Potassium 4.1 mmol/L (3.4-5.1); Sodium 138 mmol/L (137-145); Total Protein 7.6 g/dL (6.3-8.2)
--- NOTE | 2021-02-02 12:36 | ED.GENADULT ---
HPI - General Adult General Chief complaint: Hypertension Stated complaint: High BP Time Seen by Provider: 02/02/21 12:29 Source: patient Mode of arrival: Ambulatory Limitations: no limitations History of Present Illness HPI narrative: Patient is a 81-year-old female. I evaluated the emergency department yesterday. Was diagnosed with hypertension and also diverticulitis. Was started on antibiotics. We increased her lisinopril from 10 mg a day to 20 mg a day. She states that she went home. Slept most of yesterday afternoon until this morning. Has taking her antibiotics as directed. This morning woke up. Was feeling somewhat lightheaded. No chest pain. No shortness of breath. No lower extremity swelling. Is having back discomfort but this was attributed to her history of diverticulitis. She took her blood pressure at home. Again it was elevated with a systolic greater than 200. She stated that she did take her blood pressure medication this morning like we had discussed yesterday. He came back to the emergency department for further evaluation. Related Data Previous Rx's Medication Instructions Recorded metoprolol tartrate 50 mg tablet See Rx Instructions .ROUTE 07/30/19 .COMPLEX #180 tablet atorvastatin 40 mg tablet 40 mg PO DAILY #90 tab 11/27/19 lisinopril 10 mg tablet 10 mg PO DAILY #90 tab 05/30/20 amoxicillin 875 mg-potassium 1 tab PO Q12H 10 Days #20 tab 02/01/21 clavulanate 125 mg tablet (Augmentin) hydrocodone 5 mg-acetaminophen 325 1 tab PO Q4-6H PRN #10 tab 02/02/21 mg tablet Allergies Allergy/AdvReac Type Severity Reaction Status Date / Time No Known Drug Allergies Allergy Verified 05/30/20 08:47 Review of Systems Constitutional Constitutional: Denies headache(s) Eyes Eyes: Reports as per HPI and Reports system reviewed and no additional complaints, except as documented ENT Ears, Nose, Mouth, and Throat: Denies headache(s) Cardiovascular Cardiovascular: Reports as per HPI and Reports system reviewed and no additional complaints, except as documented Respiratory Respiratory: Reports as per HPI and Reports system reviewed and no additional complaints, except as documented Gastrointestinal Gastrointestinal: Reports system reviewed and no additional complaints, except as documented Integumentary/Breasts Skin/Breast: Reports system reviewed and no additional complaints, except as documented and Reports as per HPI Neurologic Neurologic: Denies headache(s) Hematologic/Lymphatic On Anticoagulants: No Patient History Medical History Carotid artery disease Chronic back pain Measles Osteoarthritis (~2008) Partial blindness (~1999) Pyelonephritis Scarlet fever Skin cancer (~2009) Stroke (~1999) Vertigo Vision disorder Surgical History (Updated 02/12/18 @ 22:13 by Leah Silverman) Anesthesia History of bilateral salpingo-oophorectomy (BSO) History of neck surgery (~1999) Status post appendectomy Status post hysterectomy (~1969) Family History Brother Cancer Child Age: 53 Heart disease Father Heart disease Stroke Mother Heart disease Liver disease Social History marital status: Smoking Status: Current every day smoker alcohol intake: current substance use type: does not use Smoking Status: Current every day smoker tobacco type: cigarettes alcohol intake frequency: 0-2 drinks per day Substance Use Type: does not use Exam Initial Vital Signs Initial Vital Signs: Vital Signs Temperature 98.2 F 02/02/21 11:33 Pulse Rate 63 02/02/21 11:33 Respiratory Rate 18 02/02/21 11:33 Blood Pressure 242/108 H 02/02/21 11:33 Pulse Oximetry 99 02/02/21 11:33 Const General: cooperative, healthy appearing, comfortable and well developed HENME Head: normal to inspection and normocephalic Eyes General: appearance normal, both eyes and all related structures Resp Effort & Inspection: normal respiratory effort Auscultation: clear to auscultation bilaterally Cardio Rate: regular rate Rhythm: regular rhythm GI Inspection: normal to inspection Palpation: soft and No tender Skin General: no rashes or lesions noted Neuro General: patient alert, patient awake, patient oriented x3, gait normal, moves all extremities and no meningeal signs Cognition: normal cognition Speech: speech normal Gait: normal gait Extrem General: normal to inspection and capillary refill normal Psych Appearance: grossly normal and well kempt Course Orders Ordered: ED Orders 02/02/21 11:40 XR chest 1V Stat EKG-12 Lead Stat 02/02/21 11:50 Complete Blood Count AUTO DIFF Stat Comprehensive Metabolic Panel Stat Lipase Stat Magnesium Stat Troponin & CK Cardiac Panel Stat Discontinued Medications Hydralazine HCl (Hydralazine 20 Mg/Ml Vial) 10 mg IV NOW ONE Stop: 02/02/21 12:37 Last Admin: 02/02/21 12:41 Dose: 10 mg Documented by: CATHY Vital Signs Vital signs: Vital Signs - 8 hr 02/02/21 11:33 02/02/21 12:41 02/02/21 12:59 Temperature 98.2 F Pulse Rate 63 55 L 62 Respiratory Rate 18 20 Blood Pressure 242/108 H 219/93 H 194/74 H Pulse Oximetry 99 98 02/02/21 13:00 02/02/21 13:14 02/02/21 13:34 Temperature Pulse Rate 61 68 63 Respiratory Rate 18 14 21 Blood Pressure 194/77 H 192/78 H 194/79 H Pulse Oximetry 98 98 99 02/02/21 14:01 02/02/21 14:31 Temperature Pulse Rate 65 70 Respiratory Rate 20 20 Blood Pressure 159/102 H 182/77 H Pulse Oximetry 98 97 Medical Decision Making Medical Records Medical records reviewed: Yes I reviewed the patient's medical records. Lab Data Lab results reviewed: Yes I reviewed the patient's lab results. Result diagrams: 02/02/21 11:50 02/02/21 11:50 Labs: Lab Results 02/02/21 02/02/21 Range/Units 11:50 11:50 WBC 9.3 (4.5-11.0) X10^3/uL RBC 5.24 H (4.0-5.2) X10^6/uL Hgb 15.5 (12.0-16.0) g/dL Hct 46.1 H (36-46) % MCV 88.0 (80-100) fL MCH 29.7 (26-34) PG MCHC 33.7 (30-36) % RDW 14.4 (11.6-14.8) % Plt Count 262 (150-400) X10^3/uL Neut % (Auto) 66.9 (50-75) % Lymph % (Auto) 21.9 L (25-40) % [place] % (Auto) 8.6 (3-14) % Eos % (Auto) 2.3 (2-4) % Baso % (Auto) 0.3 (0-2) % Neut # (Auto) 6200 (5935-6547) /uL Lymph # (Auto) 2000 (7387-5481) /uL [place] # (Auto) 800 (0-900) /uL Eos # (Auto) 200 (0-450) /uL Baso # (Auto) 0 (0-100) /uL Sodium 138 (137-145) mmol/L Potassium 4.1 (3.4-5.1) mmol/L Chloride 102 (98-107) mmol/L Carbon Dioxide 28 (22-32) mmol/L BUN 13 (7-17) mg/dL Creatinine 1.03 (0.52-1.04) mg/dL Estimated GFR 51.7 L (>60) mL/min BUN/Creatinine Ratio 12.6 (6-22) Glucose 98 (80-110) mg/dL Calcium 9.9 (8.4-10.2) mg/dL Magnesium 1.9 (1.6-2.3) mg/dL Total Bilirubin 0.8 (0.2-1.3) mg/dL AST 24 (14-36) IU/L ALT 12 (<35) IU/L Alkaline Phosphatase 93 (38-126) U/L Total Creatine Kinase 40 (30-135) U/L CK-MB (CK-2) TNP CK-MB (CK-2) Rel Index TNP Troponin I < 0.012 (0.01-0.034) ng/mL Total Protein 7.6 (6.3-8.2) g/dL Albumin 4.3 (3.5-5.0) g/dL Globulin 3.3 (1.7-4.1) g/dL Albumin/Globulin Ratio 1.3 (1.0-2.8) Lipase 70 (23-300) U/L ECG Data Attestation: I personally reviewed and interpreted this ECG as follows: Prior ECG tracings: available for review Interpretation: Sinus bradycardia Ventricular rate of 58 Normal axis Normal QRS Normal QTC Nonspecific ST T wave changes MDM Narrative Medical decision making narrative: Yesterday patient arrived with hypertension and also diverticulitis. She was asymptomatic at that time. Today she is hypertensive but is also lightheaded. I do want to avoid beta-blockers because of her bradycardia. She is already on metoprolol twice a day. She was given hydralazine here in the ER which did improve her blood pressure and also improved her lightheadedness. Had a discussion with her primary doctor. Plan will be is to have her keep that her metoprolol as he is. She will now start taking 20 mg of lisinopril 2 times a day. He will have his office contact her for follow-up later this week. She will continue her antibiotics for her diverticulitis. I do feel that we can hold on a head CT for now. She was given return precautions and follow-up instructions. She expressed understanding and agreement. Discharge Plan Departure Patient Disposition: Home Clinical Impression: Hypertension Instructions: DI for High Blood Pressure Activity Restrictions/Additional Instructions: I did discuss your case today with Dr. Ordonez. He would like you to continue with your current dose of metoprolol 2 times a day. He would like you to increase your lisinopril to 20 mg 2 times a day. Go ahead and take that this evening. His office will call you within the next 24 hours for a follow-up. Return to the emergency department for any new or worsening symptoms Prescriptions: New hydrocodone-acetaminophen 5-325 mg tablet 1 tab PO Q4-6H PRN (Reason: pain) Qty: 10 RF: 0 No Action atorvastatin 40 mg tablet 40 mg PO DAILY Qty: 90 RF: 3 lisinopril 10 mg tablet 10 mg PO DAILY Qty: 90 RF: 3 metoprolol tartrate 50 mg tablet See Rx Instructions .ROUTE .COMPLEX Qty: 180 RF: 1 amoxicillin-pot clavulanate [Augmentin] 875-125 mg tablet 1 tab PO Q12H 10 Days Qty: 20 RF: 0 Referrals: Brian Ordonez MD [Primary Care Provider] -
[2021-02-02 12:38] LABS: Troponin I < 0.012 ng/mL (0.01-0.034)
[2021-02-02] MEDS: HYDRALAZINE 20 MG/ML VIAL 10 MG IV (12:41)
== END 2021-02-02 15:04 | disposition home or self-care (01) ==
PROVIDERS: Emergency Provider Emergency Medicine; Family Provider Family Medicine; PCP Family Medicine
DX: I10 Essential (primary) hypertension (principal); R00.1 Bradycardia, unspecified
CPT/HCPCS: 36415; 71045; 80053; 82550; 83690; 83735; 84484; 85025; 93005; 93010; 96374; 99283; 99284; J0360

== ENCOUNTER → 2021-04-06 11:12 | Outpatient (CLI) | payer MEDICARE, SELFPAY ==
--- NOTE | 2021-04-06 11:14 | DI.RAD.S_ITS ---
PROCEDURE: XR PELVIS 1-2V INDICATIONS: back pain TECHNIQUE: 1 view(s) of the pelvis acquired. COMPARISON: None. FINDINGS: Bones: No fractures or dislocations. No suspicious bony lesions. Osseous hypertrophy and mild joint space narrowing noted in the hips bilaterally. Soft tissues: Visualized bowel gas pattern is normal. No suspicious soft tissue calcifications. IMPRESSION: [id number] bilateral hip osteoarthritis. Dictated by: Aarti Em MD, PhD on 04/06/2021 at 16:29 Approved by: Aarti Em MD, PhD on 04/06/2021 at 16:30
--- NOTE | 2021-04-06 11:14 | DI.RAD.S_ITS ---
PROCEDURE: XR LUMBAR SPINE MIN 4V INDICATIONS: back pain TECHNIQUE: Three views of the lumbar spine COMPARISON: [facility], CT, CT ABDOMEN PELVIS W CON, 02/01/2021, 8:13. FINDINGS: L2 vertebral body height loss is similar to the comparison CT. Otherwise normal vertebral body height and alignment. No listhesis. Degenerative changes at every level in the lumbar spine worst from L3-L4 through L5-S1 are similar to the comparison CT , and are overall moderate. IMPRESSION: Moderate lower lumbar spine degenerative changes. Lumbar spine MRI could be considered. Dictated by: Brian Morton M.D. on 04/06/2021 at 15:09 Approved by: Brian Morton M.D. on 04/06/2021 at 15:10
== END ==
PROVIDERS: Family Provider Family Medicine; PCP Family Medicine; Referring Provider Family Medicine; Visit Provider Family Medicine
DX: M47.816 Spondylosis without myelopathy or radiculopathy, lumbar region (principal); M47.817 Spondylosis without myelopathy or radiculopathy, lumbosacral region; M54.9 Dorsalgia, unspecified
CPT/HCPCS: 72110; 72170

== ENCOUNTER → 2021-05-06 10:40 | Outpatient (CLI) | payer MEDICARE, SELFPAY ==
[2021-05-06 12:51] LABS: Appearance Urine UA CLEAR; Bilirubin Urine UA NEGATIVE (NEGATIVE); Color Urine UA YELLOW; Glucose Urine UA NEGATIVE (Negative); Ketones Urine UA NEGATIVE (NEGATIVE); Leukocyte Esterase Urine UA NEGATIVE (NEGATIVE); Nitrite Urine UA NEGATIVE (Negative); Occult Blood Urine UA NEGATIVE (Negative); Protein Urine UA TRACE (Negative); Specific Gravity Urine UA >=1.030 (1.000-1.035); Urobilinogen Urine UA 0.2 E.U./dL (0.2)
[2021-05-06 13:05] LABS: RBC Urine None Seen (0-5/HPF); Squamous Epithelial Cell Urine 5-10 /HPF (0-5/HPF); WBC Urine 1-5/HPF (0-5/HPF)
[2021-05-06 13:06] LABS: Amorphous Sediment Urine 1+; Bacteria Urine Moderate (10-30); Culture Indicated Urine Specimen Cultured; Mucus Urine 1+ (Negative)
== END ==
PROVIDERS: Family Provider Family Medicine; PCP Family Medicine; Referring Provider Physician Assistant; Visit Provider Physician Assistant
DX: M54.9 Dorsalgia, unspecified (principal); R10.32 Left lower quadrant pain
CPT/HCPCS: 81001; 87086

== ENCOUNTER → 2021-05-12 10:39 | Outpatient (CLI) | payer MEDICARE, SELFPAY ==
--- NOTE | 2021-05-12 10:40 | DI.US.S_ITS ---
PROCEDURE: US PELVIC COMPLETE INDICATIONS: L>R Lower quad pain; Hx of partial hyster and R ooph TECHNIQUE: Real-time scanning was performed of the pelvic organs, with image documentation. Additional endovaginal scanning was necessary due to incomplete visualization of the adnexal and endometrial structures by transabdominal scanning. COMPARISON: [facility], CT, CT ABDOMEN PELVIS W CON, 02/01/2021, 8:13. FINDINGS: Uterus: Surgically absent. Ovaries: Ovaries not identified. Other: No pathologic free abdominal or pelvic fluid. IMPRESSION: Limited exam demonstrating no source for left pelvic pain. If pain persists, consider CT. We strive to produce accurate, complete, and clear reports of imaging services. To assist us in improving patient care, this report was composed using standard report templates and voice recognition software. Therefore, it may contain abnormal punctuation, insertions and/or omissions. Occasional wrong-word or sound-alike substitutions may occur. Though we review the report and make efforts to correct it, we do recommend that the report be read carefully in proper context to recognize any text inaccuracies. Dictated by: Duong COHEN Interpreted: Donna Summers MD on 05/12/2021 at 11:15 Transcribed by: LIAM on 05/12/2021 at 11:16 Approved by: Donna Summers M.D. on 05/12/2021 at 14:26
== END ==
PROVIDERS: Family Provider Family Medicine; PCP Family Medicine; Referring Provider Physician Assistant; Visit Provider Physician Assistant
DX: M54.9 Dorsalgia, unspecified (principal); R10.32 Left lower quadrant pain
CPT/HCPCS: 76830; 76856

== ENCOUNTER → 2021-10-03 08:19 | Outpatient (CLI) | payer MEDICARE, SELFPAY ==
--- NOTE | 2021-10-03 08:21 | DI.RAD.S_ITS ---
PROCEDURE: XR HAND LT MIN 3V INDICATIONS: pain TECHNIQUE: Three views of the hand acquired. COMPARISON: None. FINDINGS: Bones: No acute fractures or dislocations. Carpal bones are normally aligned. No suspicious bony lesions. Scattered degenerative changes are seen at the 1st carpometacarpal joint, 1st metacarpophalangeal joint, and scattered throughout the interphalangeal joints of the fingers. Mild generalized osteopenia. Soft tissues: No suspicious soft tissue calcifications. IMPRESSION: No acute osseous abnormality. If clinical suspicion and/or symptoms persist, additional imaging with repeat plain films, or advanced imaging (e.g. CT, MRI) may be helpful for further assessment. Dictated by: Agapito Youssef M.D. on 10/03/2021 at 8:43 Approved by: Agapito Youssef M.D. on 10/03/2021 at 8:44
== END ==
PROVIDERS: Family Provider Family Medicine; PCP Family Medicine; Referring Provider Physician Assistant; Visit Provider Physician Assistant
DX: M79.642 Pain in left hand (principal)
CPT/HCPCS: 73130

== ENCOUNTER → 2022-02-25 06:56 | Outpatient (CLI) | payer MEDICARE, SELFPAY ==
[2022-02-25 09:52] LABS: Add Manual Diff / Slide Review NO; Basophils Absolute Auto 100 /uL (0-100); Basophils Percent Auto 1.9 % (0-2); Eosinophils Absolute Auto 600 /uL (0-450); Eosinophils Percent Auto 8.1 % (2-4); Hemoglobin 13.9 g/dL (12.0-16.0); Lymphocytes Absolute Auto 1600 /uL (1100-4500); Lymphocytes Percent Auto 21.7 % (25-40); Mean Corpuscular HGB Conc 33.9 % (30-36); Mean Corpuscular Hemoglobin 29.7 PG (26-34); Mean Corpuscular Volume 87.5 fL (80-100); Monocytes Absolute Auto 700 /uL (0-900); Monocytes Percent Auto 9.3 % (3-14); Neutrophils Absolute Auto 4300 /uL (1500-7000); Platelet Count 278 X10^3/uL (150-400); Red Blood Cell Count 4.68 X10^6/uL (4.0-5.2); Red Cell Distribution Width 14.7 % (11.6-14.8); White Blood Cell Count 7.3 X10^3/uL (4.5-11.0)
[2022-02-25 10:18] LABS: Alanine Aminotransferase 17 IU/L (<35); Albumin 4.1 g/dL (3.5-5.0); Albumin Globulin Ratio 1.2 (1.0-2.8); Alkaline Phosphatase 91 U/L (38-126); Aspartate Aminotransferase 20 IU/L (14-36); BUN Creatinine Ratio 17.1 (6-22); Bilirubin Total 0.5 mg/dL (0.2-1.3); Blood Urea Nitrogen 25 mg/dL (7-17); Calcium 9.3 mg/dL (8.4-10.2); Carbon Dioxide 28 mmol/L (22-32); Chloride 101 mmol/L (98-107); Cholesterol 243 mg/dL (140-199); Estimated Glomerular Filt Rate 36 mL/min (>60); Globulin 3.4 g/dL (1.7-4.1); Glucose 89 mg/dL (80-110); HDL Cholesterol 35 mg/dL (40-60); HEMOLYSIS < 15 (0-50); LDL Cholesterol Calculated 163 mg/dL (<100); Potassium 4.6 mmol/L (3.4-5.1); Sodium 138 mmol/L (137-145); Total Protein 7.5 g/dL (6.3-8.2); Triglycerides 226 mg/dL (35-150)
[2022-02-25 11:01] LABS: Vitamin B12 375 pg/mL (239-931)
== END ==
PROVIDERS: Family Provider Family Medicine; PCP Family Medicine; Referring Provider Physician Assistant; Visit Provider Physician Assistant
DX: E78.2 Mixed hyperlipidemia (principal); F17.200 Nicotine dependence, unspecified, uncomplicated; I10 Essential (primary) hypertension; N18.9 Chronic kidney disease, unspecified; R19.7 Diarrhea, unspecified; R42 Dizziness and giddiness; R53.83 Other fatigue
CPT/HCPCS: 36415; 80053; 80061; 82607; 84443; 85025

== ENCOUNTER → 2022-03-02 09:42 | Outpatient (CLI) | payer MEDICARE, SELFPAY ==
[2022-03-02 20:19] LABS: Clostridium Difficile Tox PCR Negative for C. diff (Negative)
[2022-03-05 18:37] LABS: Calprotectin, Stool 185 ug/g (0-120)
== END ==
PROVIDERS: Family Provider Family Medicine; PCP Family Medicine; Referring Provider Family Medicine; Visit Provider Family Medicine
DX: R19.7 Diarrhea, unspecified (principal)
CPT/HCPCS: 83993; 87045; 87177; 87493; 87899

== ENCOUNTER 2022-03-05 11:39 | Emergency (ER) | payer MEDICARE, SELFPAY ==
[2022-03-05 11:43] VITALS: BP 161/70; PULSE 74; RESP 16; TEMP 36.7; O2SAT 99; BMI 32.9
--- NOTE | 2022-03-05 12:46 | ED.EXTPRO ---
HPI - Extremity Problem <Samina Do Dickey, [facility] - Last Filed: 03/05/22 13:50> General Chief complaint: Extremity Problem,Nontraumatic Stated complaint: LT arm pain numb fingers x2 days Time Seen by Provider: 03/05/22 12:03 Source: patient Mode of arrival: Ambulatory History of Present Illness HPI Narrative: This is a 82 year old female presents to the emergency department for worsening left arm pain over the last 2 days, she states that it started in her left wrist on the radial aspect and had been radiating to her left elbow, states it is now progressed to her left shoulder and is in her bicep region. She states that it feels better in a wrist brace and she has been wearing 1, she is right-hand dominant, a left-handed smoker, history of hypertension, hyperlipidemia, history of endarterectomy, CKD, back pain and denies any recent injury. She denies neck pain, endorses mild numbness and tingling to her 1st 2nd and 4th digits but has full range of motion of her left shoulder, elbow, wrist, hand and fingers. Denies any temperature change, denies chest pain, shortness of breath, weakness, neck pain difficulty ambulating, but does endorse recent dysuria, urgency, frequency and is concerned that she may have a urinary tract infection. She states that she plays slot machines sometimes but has not done this recently. She denies any rash Related Data Previous Rx's Medication Instructions Recorded Disabled Parking #1 ea 11/09/21 amlodipine 5 mg tablet 5 mg PO BID #180 tabs 01/01/22 lisinopril 40 mg tablet 40 mg PO BID #180 tabs 01/25/22 metoprolol succinate 50 mg 50 mg PO BID #180 tabs 01/27/22 tablet,extended release 24 hr mirtazapine 15 mg tablet 15 mg PO DAILY #30 tabs 01/27/22 diclofenac potassium 50 mg tablet 50 mg PO DAILY #20 tabs 03/03/22 cephalexin 500 mg capsule 500 mg PO QID acute cystitis 7 03/05/22 days #28 caps diclofenac epolamine 1.3 % 1 patch transdermal BID arm pain 03/05/22 transdermal 12 hour patch #30 ea lidocaine 5 % topical patch 1 patch topical DAILY #15 ea 03/05/22 (Lidoderm) prednisone 20 mg tablet 40 mg PO DAILY 5 days #10 tabs 03/05/22 tramadol 50 mg tablet 50 mg PO BID PRN pain #14 tabs 03/05/22 Allergies Allergy/AdvReac Type Severity Reaction Status Date / Time No Known Drug Allergies Allergy Verified 03/05/22 11:48 Review of Systems <KEIRA Ramesh - Last Filed: 03/05/22 13:50> Review of Systems Narrative: Review of systems is negative for acute abnormalities unless otherwise noted in HPI Patient History <KEIRA Ramesh - Last Filed: 03/05/22 13:50> Medical History Carotid artery disease Cerebrovascular accident (CVA) (02/18/14) Chronic back pain Diverticulitis of intestine with abscess Diverticulitis of large intestine with abscess without bleeding (04/29/17) Measles Osteoarthritis (~2008) Partial blindness (~1999) Pyelonephritis Scarlet fever Skin cancer (~2009) Stroke (~1999) Supraventricular tachycardia (02/18/14) Vertigo Vision disorder Surgical History Anesthesia History of bilateral salpingo-oophorectomy (BSO) History of neck surgery (~1999) Status post appendectomy Status post hysterectomy (~1969) Family History Brother Cancer Child Age: 54 Heart disease Father Heart disease Stroke Mother Heart disease Liver disease Social History marital status: lives independently: Yes caregiver/support person: No Smoking Status: Current every day smoker alcohol intake: current substance use type: does not use Smoking Status: Current every day smoker tobacco type: cigarettes alcohol intake frequency: holidays/special occasions only Substance Use Type: does not use Exam <KEIRA Ramesh - Last Filed: 03/05/22 13:50> Narrative Exam Narrative: Reviewed vitals signs and nursing notes. General: cooperative, comfortable, in no acute distress, well groomed HEENT: symmetrical facial expressions, moist mucous membranes MSK: moves all extremities, neurovascularly intact, no weakness, normal tone bilaterally. No erythema, ecchymosis, rash, or discoloration, when squeezing the forearm, patient jumped with tenderness along the radial aspect, when squeezing over the bicep, patient has significant has tenderness over the biceps tendon without range of motion deficit, rash, erythema or edema. Patient has mild tenderness on the right side. She is right-hand dominant but is a smoker on the left. Skin: brisk capillary refill, without pallor or erythema Neuro: normal speech and cognition, A&O x3, ambulatory, clear speech Psych: mental status is grossly normal, congruent mood, normal affect, pleasant and cooperative Initial Vital Signs Initial Vital Signs: Vital Signs Temperature 98.1 F 03/05/22 11:43 Pulse Rate 74 03/05/22 11:43 Respiratory Rate 16 03/05/22 11:43 Blood Pressure 161/70 H 03/05/22 11:43 Pulse Oximetry 99 03/05/22 11:43 Oxygen Delivery Method 03/05/22 11:43 <Cassandra Chapman MD - Last Filed: 03/05/22 14:58> Initial Vital Signs Initial Vital Signs: Vital Signs Temperature 98.1 F 03/05/22 11:43 Pulse Rate 74 03/05/22 11:43 Respiratory Rate 16 03/05/22 11:43 Blood Pressure 161/70 H 03/05/22 11:43 Pulse Oximetry 99 03/05/22 11:43 Oxygen Delivery Method 03/05/22 11:43 Scores <KEIRA Ramesh - Last Filed: 03/05/22 13:50> HEART Score Heart Score history: Slightly Suspicious (Not suspicious) Heart Score EKG: Normal Heart Score Age: > or = 65 years old Heart Score risk factors: > 3 risk factors or hx of atherosclerotic disease Course <KEIRA Ramesh - Last Filed: 03/05/22 13:50> Orders Ordered: ED Orders 03/05/22 12:40 UA Complete [Urinalysis and Microscopic] Stat Urine Culture Stat 03/05/22 13:24 EKG-12 Lead Stat Discontinued Medications Acetaminophen (Acetaminophen 325 Mg Tablet) 650 mg PO NOW ONE Stop: 03/05/22 12:45 Last Admin: 03/05/22 12:58 Dose: 650 mg Documented By: CSD Cephalexin HCl (Cephalexin 250 Mg Capsule) 1,000 mg PO NOW ONE Stop: 03/05/22 13:35 Last Admin: 03/05/22 13:54 Dose: 1,000 mg Documented By: JACKIE Lidocaine (Lidocaine Patch 1 Each Adh..Patch) 1 each TOP NOW ONE Stop: 03/05/22 12:45 Last Admin: 03/05/22 12:58 Dose: 1 each Documented By: JACKIE Lidocaine (Lidocaine Patch 1 Each Adh..Patch) 1 each TOP NOW ONE Stop: 03/05/22 13:14 Last Admin: 03/05/22 13:55 Dose: 1 each Documented By: JACKIE Lidocaine (Remove Lidocaine Patch) 2 each TOP BEDTIME BALDEMAR Prednisone (Prednisone 20 Mg Tablet) 40 mg PO NOW ONE Stop: 03/05/22 12:45 Last Admin: 03/05/22 12:58 Dose: 40 mg Documented By: JACKIE Vital Signs Vital signs: Vital Signs - 8 hr 03/05/22 11:43 03/05/22 14:05 Temperature 98.1 F Pulse Rate 74 68 Respiratory Rate 16 18 Blood Pressure 161/70 H 152/113 H Pulse Oximetry 99 98 Oxygen Delivery Method Room Air Room Air <Cassandra Chapman MD - Last Filed: 03/05/22 14:58> Orders Ordered: ED Orders 03/05/22 12:40 UA Complete [Urinalysis and Microscopic] Stat Urine Culture Stat 03/05/22 13:24 EKG-12 Lead Stat Discontinued Medications Acetaminophen (Acetaminophen 325 Mg Tablet) 650 mg PO NOW ONE Stop: 03/05/22 12:45 Last Admin: 03/05/22 12:58 Dose: 650 mg Documented By: JACKIE Cephalexin HCl (Cephalexin 250 Mg Capsule) 1,000 mg PO NOW ONE Stop: 03/05/22 13:35 Last Admin: 03/05/22 13:54 Dose: 1,000 mg Documented By: JACKIE Lidocaine (Lidocaine Patch 1 Each Adh..Patch) 1 each TOP NOW ONE Stop: 03/05/22 12:45 Last Admin: 03/05/22 12:58 Dose: 1 each Documented By: JACKIE Lidocaine (Lidocaine Patch 1 Each Adh..Patch) 1 each TOP NOW ONE Stop: 03/05/22 13:14 Last Admin: 03/05/22 13:55 Dose: 1 each Documented By: JACKIE Lidocaine (Remove Lidocaine Patch) 2 each TOP BEDTIME BALDEMAR Prednisone (Prednisone 20 Mg Tablet) 40 mg PO NOW ONE Stop: 03/05/22 12:45 Last Admin: 03/05/22 12:58 Dose: 40 mg Documented By: JACKIE Vital Signs Vital signs: Vital Signs - 8 hr 03/05/22 11:43 03/05/22 14:05 Temperature 98.1 F Pulse Rate 74 68 Respiratory Rate 16 18 Blood Pressure 161/70 H 152/113 H Pulse Oximetry 99 98 Oxygen Delivery Method Room Air Room Air MDM - Extremity (Nontraumatic) <KEIRA Ramesh - Last Filed: 03/05/22 13:50> Lab Data Lab results narrative: [facility] CLIA ID [id number] [address] [place] [address] RUN DATE: 03/05/22 Specimen Inquiry PAGE 1 RUN TIME: 1318 Name: Stefanie Galaviz Age/Sex: 82/F Attend Dr: Brian Ordonez MD Unit#: [id number] : 1940Location: LAB Re03/02/22 Disch: Status: REG CLI SPEC #: [id number] DOLLY: 03/02/22 STATUS: COMP REQ #: [id number] SPDESC: RECD: 03/02/[address]: Brian Ordonez MD SOURCE: Stool ENTR: 03/02/[address]: FAX TO: ORDERED: Stool Culture Procedure Result Verified Site Stool Culture Final 03/04/22 Amount of Growth Heavy growth- Mixed fecal hoa Shiga Toxin 1 Negative for Shiga Toxin 1 Shiga Toxin 2 Negative for Shiga Toxin 2 Campy Negative for Campylobacter Pathogens No Salmonella/Shigella/Yersinia/Campy/E.coli 0157 isolated Negative for C diff Labs: Lab Results 03/05/22 Range/Units 12:40 Urine Color Yellow Urine Appearance Sl cloudy Urine pH 5.0 (4.5-8.0) Ur Specific [place] 1.020 (1.000-1.035) Urine Protein Trace H (Negative) Urine Glucose (UA) Negative (Negative) g/dL Urine Ketones Negative (NEGATIVE) Urine Occult Blood Trace-lysed (Negative) Urine Nitrate Negative (Negative) Urine Bilirubin Negative (NEGATIVE) Urine Urobilinogen 0.2 (0.2) E.U./dL Ur Leukocyte Esterase Trace H (NEGATIVE) Urine RBC 1-5/hpf (0-5/HPF) Urine WBC 5-10/hpf H (0-5/HPF) Ur Squamous Epith Cells 5-10 /hpf H (0-5/HPF) Amorphous Sediment 1+ Urine Bacteria Moderate (10-30) H (None) Urine Mucus 1+ H (Negative) Ur Culture Indicated? Specimen cultured MDM Narrative Medical decision making narrative: This is an 82-year-old female with history of hypertension, abdominal aortic aneurysm, smoker, back pain, hyperlipidemia and CKD who presents to the emergency department with worsening left arm pain along the radial aspect with reproducible tenderness along the biceps tendon at the greatest. Patient had a lab work drawn on 02/25/2022 after a primary care appointment for her hypertension, her creatinine was elevated at 1.46 with a GFR of 36. She has a history of CKD with a baseline creatinine of 1-1.2. Patient endorses dysuria and urinary frequency with urgency, her UA today is positive for WBCs, leukocyte esterase, bacteria and is pending for culture. Her prior stool culture is negative for C diff and others as posted above in lab values. Patient's daughter who is an RN requested to speak with me regarding patient's arm pain for 2 days, patient's daughter was not aware that her left arm pain was reproducible along her biceps tendon, she requests an EKG at minimum for cardiac workup to be completed, I discussed with her that she has not had any symptoms of chest pain, shortness of breath, jaw pain, her left arm pain has gradually come on for the last 2 days but patient states she is had this same pain in her right arm in the past. And states she currently has it right now. She does not have abnormal vital signs, her blood pressure was 161/70 and she does have a history of hypertension. She is making urine, does not have shortness of breath, fatigue, any other symptoms like lightheadedness, palpitations, back pain, chest pain, abdominal pain. Reproducible tenderness to her left upper arm along her biceps tendon and in her forearm on the radial aspect is reassuring to me that this is most likely a tendinitis type pain. I did consider TN, PE, cervical radiculopathy, aortic dissection, and pleurisy. Patient reports no chest pain, shortness of breath, radiation, no diaphoresis, no provocation with exertion, and no vomiting. No peritoneal signs on abdominal exam. Patient remains p.o. tolerant. Given history and exam, low suspicion for acute abdominal process, such as acute cholecystitis, pancreatitis, perforated viscus, atypical appendicitis, colitis, diverticulitis or torsion. Extensive conversation about ER return precautions and need for close follow-up. Patient's vital signs are within normal ranges, she is afebrile, nontoxic appearing, without symptomatic signs of illness. Her heart score is approximately 2-3 although lab work was not completed today it was not indicated. I did consider sepsis, and acute coronary syndrome however patient did not have any symptoms of either of these today. Her EKG was without any ST changes, it does show P mitrale waves in lead 2 suggesting left atrial enlargement. Ask patient to please follow-up with her primary care provider in 1 week for a retest of her urine, she may benefit from steroid injections for this tendinitis if her creatinine is still elevated at 1.4. I encourage hydration as a top priority, gave her strict return precautions and she states understanding. Patient is appropriate and amenable to discharge home. Vital signs are stable on repeat examination is unremarkable. Patient has been informed of results. Patient has been given strict return to ER precautions for any new or worsening symptoms. Patient understands to follow up closely with outpatient providers as instructed. Patient understands plan and agrees to discharge home. All questions and concerns answered at this time. Patient is appropriate and amenable to discharge home. Vital signs are stable on repeat examination is unremarkable. Patient has been informed of results. Patient has been given strict return to ER precautions for any new or worsening symptoms. Patient understands to follow up closely with outpatient providers as instructed. Patient understands plan and agrees to discharge home. All questions and concerns answered at this time. <Cassandra Chapman MD - Last Filed: 03/05/22 14:58> Lab Data Labs: Lab Results 03/05/22 Range/Units 12:40 Urine Color Yellow Urine Appearance Sl cloudy Urine pH 5.0 (4.5-8.0) Ur Specific [place] 1.020 (1.000-1.035) Urine Protein Trace H (Negative) Urine Glucose (UA) Negative (Negative) g/dL Urine Ketones Negative (NEGATIVE) Urine Occult Blood Trace-lysed (Negative) Urine Nitrate Negative (Negative) Urine Bilirubin Negative (NEGATIVE) Urine Urobilinogen 0.2 (0.2) E.U./dL Ur Leukocyte Esterase Trace H (NEGATIVE) Urine RBC 1-5/hpf (0-5/HPF) Urine WBC 5-10/hpf H (0-5/HPF) Ur Squamous Epith Cells 5-10 /hpf H (0-5/HPF) Amorphous Sediment 1+ Urine Bacteria Moderate (10-30) H (None) Urine Mucus 1+ H (Negative) Ur Culture Indicated? Specimen cultured Discharge Plan Departure Patient Disposition: Home Clinical Impression: Acute cystitis with hematuria, Biceps tendinitis of left upper extremity Instructions: Tendinopathy, Acute Cystitis, DI for Tendinitis Activity Restrictions/Additional Instructions: *You have been diagnosed with a bladder infection, what is most likely tendinitis of your left upper arm, and in your right upper arm, no signs of heart strain on your EKG today with a normal rhythm and rate. Please schedule a follow-up appointment with Dr. Ordonez regarding this arm pain to see if this medication regimen helps improve your pain. Please also have your urine retested to make sure that the antibiotic worked. Please stay hydrated as a priority, drink at least 4 glasses of water morning and afternoon. Please come back to the emergency department if you develop a fever, chills, nausea, feel weak or worse. If you develop chest pain, shortness of breath, or other acute change of wellness, please come back to the emergency department for evaluation. It is okay to wear the wrist brace if that is comfortable, try to avoid repetitive movements and overuse while it is inflamed. I have given you both lidocaine patches and diclofenac patches, please see which 1 CT best, please avoid taking diclofenac tabs for the near future until you follow-up with primary care, I have given you some tramadol to use for pain instead. You have had tolerance to this in the past, please be aware that it might make you feel tired or dizzy so take it in a controlled setting with food and water. If you feel better soon. You may benefit from steroid injections to this if it does not improve with a steroid. It is okay to take Tylenol in addition to these medications for pain control. Please take the antibiotic 4 times a day for the next 7 days. Schedule an appointment for 1 week from now. *What to do: *Please continue to take your regular medications as directed. [ x] New medication prescriptions sent to your pharmacy: [ [facility]] [ ] New medication written as a paper prescription [ ] No new medications given *Please follow up with your primary care provider in 2-3 days, call for an appointment. Let them know you were seen in the Emergency Department and that we asked that you be seen for follow-up. We will electronically transmit a record of today's note if your PCP is in our system *If you do not have a primary care provider please contact [phone] to establish care with one of the [facility] primary care providers. *Return to Emergency Department if you should have any new, worsening, or concerning symptoms, such as [fever greater than 101F, chills, worsening pain, persistent vomiting or other bothersome symptoms]. Prescriptions: New cephalexin 500 mg capsule 500 mg PO QID 7 Days Qty: 28 0RF diclofenac epolamine 1.3 % patch 12 hour 1 patch transdermal BID Qty: 30 0RF prednisone 20 mg tablet 40 mg PO DAILY 5 Days Qty: 10 0RF tramadol 50 mg tablet 50 mg PO BID PRN (Reason: pain) Qty: 14 0RF lidocaine [Lidoderm] 5 % adhesive patch,medicated 1 patch topical DAILY Qty: 15 0RF Rx Instructions: leave on most painful area for up to 12 hrs No Action (DME) Disabled Parking See Rx Instructions .ROUTE .MEDSUPPLY Qty: 1 0RF Rx Instructions: I find this patient to be medically disabled and qualified for Disabled Parking as indicated, and signed, on the Accompanying Disabled Parking Application for Individuals mirtazapine 15 mg tablet 15 mg PO DAILY Qty: 30 1RF metoprolol succinate 50 mg tablet extended release 24 hr 50 mg PO BID Qty: 180 3RF amlodipine 5 mg tablet 5 mg PO BID Qty: 180 0RF lisinopril 40 mg tablet 40 mg PO BID Qty: 180 3RF diclofenac potassium 50 mg tablet 50 mg PO DAILY Qty: 20 0RF Referrals: Lan Torres DO [Physician] - Brian Ordonez MD [Primary Care Provider] - Raissa Sequeira PA-C [[employer] Transfer Clerk] - Visit Report Forms: Patient Portal/API <Cassandra Chapman MD - Last Filed: 03/05/22 14:58> Cosign ED Attending Cosignature Attestation: I was immediately available in the department for consultation throughout this patient's visit. I agree with documentation as above. Cassandra Chapman MD
[2022-03-05] MEDS: LIDOCAINE PATCH 1 EACH ADH..PATCH TOP ×2 (12:58→13:55)
[2022-03-05] MEDS: ACETAMINOPHEN 325 MG TABLET 650 MG PO (12:58)
[2022-03-05] MEDS: predniSONE 20 MG TABLET 40 MG PO (12:58)
[2022-03-05 13:14] LABS: Appearance Urine UA SL CLOUDY; Bilirubin Urine UA NEGATIVE (NEGATIVE); Color Urine UA YELLOW; Glucose Urine UA NEGATIVE (Negative); Ketones Urine UA NEGATIVE (NEGATIVE); Leukocyte Esterase Urine UA TRACE (NEGATIVE); Nitrite Urine UA NEGATIVE (Negative); Occult Blood Urine UA TRACE-LYSED (Negative); Protein Urine UA TRACE (Negative); Urobilinogen Urine UA 0.2 E.U./dL (0.2)
[2022-03-05 13:30] LABS: Amorphous Sediment Urine 1+; Bacteria Urine Moderate (10-30); Culture Indicated Urine Specimen Cultured; Mucus Urine 1+ (Negative); RBC Urine 1-5/HPF (0-5/HPF); Squamous Epithelial Cell Urine 5-10 /HPF (0-5/HPF); WBC Urine 5-10/HPF (0-5/HPF)
[2022-03-05] MEDS: cephALEXin 250 MG CAPSULE 1000 MG PO (13:54)
[2022-03-05 14:05] VITALS: BP 152/113; PULSE 68; RESP 18; O2SAT 98
== END 2022-03-05 14:06 | disposition home or self-care (01) ==
PROVIDERS: Emergency Provider Nurse Practitioner Critical Care Medicine; Family Provider Family Medicine; PCP Family Medicine
DX: N30.01 Acute cystitis with hematuria (principal); M75.22 Bicipital tendinitis, left shoulder; Z79.899 Other long term (current) drug therapy; R07.9 Chest pain, unspecified
CPT/HCPCS: 81001; 87077; 87086; 87186; 93005; 93010; 99283; 99284

== ENCOUNTER → 2022-03-08 08:27 | Outpatient (CLI) | payer MEDICARE, SELFPAY ==
--- NOTE | 2022-03-08 08:28 | DI.US.S_ITS ---
PROCEDURE: US ABDOMEN COMPLETE INDICATIONS: DIARRHEA X 3 WEEKS TECHNIQUE: Real-time scanning was performed of the abdominal and retroperitoneal organs, with image documentation. COMPARISON: [facility], CT, CT ABDOMEN PELVIS W CON, 02/01/2021, 8:13. [facility], CT, ABDOMEN/PELVIS WITH CONTRAST, 04/16/2017, 17:18. FINDINGS: Liver: Liver is normal in size and homogeneous in echotexture. Gallbladder: No findings of gallstones or sludge are seen. The gallbladder wall is not thickened, measuring 3 mm or less. No specific pericholecystic fluid is seen. The sonographic Proctor sign is negative. Biliary ducts: Intrahepatic bile ducts are non-dilated. Extrahepatic bile duct caliber measures 6 mm. Normal is 6-7 mm or less in diameter, or 10 mm or less post-cholecystectomy. Pancreas: Within the head of the pancreas, there is a 2.3 x 2 x 2 x 2.3 cm solid-appearing mass, with minimal internal vascularity. The pancreas is otherwise unremarkable. The pancreatic duct is not frankly dilated. Spleen: Spleen is normal in size and homogeneous in echotexture. Kidneys: The kidneys demonstrate normal overall echotexture. Right kidney measures 11.5 cm long; left kidney measures 8.9 cm long. No hydronephrosis or nephrolithiasis. No solid masses. Aorta: Visualized aorta is normal in caliber at less than 3 cm. Iliacs: Proximal common iliac arteries are normal in caliber at less than 2.5 cm. IVC: Intrahepatic inferior vena cava is patent. Miscellaneous: No free abdominal fluid. IMPRESSION: There is a 2.3 cm apparent pancreatic head mass. (This is not seen on the 02/01/2021 CT, even in retrospect.) When clinically appropriate, further evaluation is recommended with a dedicated pancreas protocol CT or MRI. No imaging explanation is found for this patient's presenting symptoms. Mildly atrophic left kidney noted. Dictated by: Neto Barber M.D. on 03/08/2022 at 11:58 Approved by: Neto Barber M.D. on 03/08/2022 at 12:02
== END ==
PROVIDERS: Family Provider Family Medicine; PCP Family Medicine; Referring Provider Physician Assistant; Visit Provider Physician Assistant
DX: K86.9 Disease of pancreas, unspecified (principal); N26.1 Atrophy of kidney (terminal); R19.7 Diarrhea, unspecified; R53.83 Other fatigue; F17.200 Nicotine dependence, unspecified, uncomplicated
CPT/HCPCS: 76700

== ENCOUNTER → 2022-03-12 09:03 | Outpatient (CLI) | payer MEDICARE, SELFPAY ==
--- NOTE | 2022-03-12 | DI.MRI.S_ITS ---
PROCEDURE: MR ABDOMEN WO/W CON INDICATIONS: PANCREATIC MASS TECHNIQUE: Coronal HASTE, axial 2D FLASH in- and [id number]; axial breath-hold T2 FSE with fat saturation from the hepatic dome to the iliac crests. Oblique coronal thin-slice and radial thick slab HASTE through the biliary system. Dynamic axial VIBE during administration of contrast. Post-contrast coronal VIBE or 2D FLASH with fat saturation from the hepatic dome to the iliac crests. Optional diffusion weighted imaging and ADC may be performed. COMPARISON: [facility], US, US ABDOMEN COMPLETE, 03/08/2022, 8:37. FINDINGS: Image quality: Motion degraded Lower chest: No basal effusions. Lungs are not well evaluated on this study. Solid organs: Heterogeneity of the liver is difficult to evaluate with motion artifact. No definite discrete focal lesion is identified. A tiny cyst is seen adjacent to the hepatic IVC. Biliary tree is nondilated. There is a diffusion restricting mass at the pancreatic head measuring 22 x 27 mm (3/26). Mild upstream pancreatic ductal dilation is seen. There is also loss of intrinsic T1 signal on precontrast images in the body and tail of the pancreas. Spleen is nonenlarged. No adrenal nodules. No hydronephrosis. There is left perinephric stranding, small cyst, and atrophy. Multifocal scarring, these were seen previously. Vessels and lymph nodes: Within the limits of evaluation, Borderline 180? or less of contact with the mass and the superior SMV and portal confluence. The SMA axis is clear. The celiac trunk is clear. No pathologic adenopathy by size criteria. There are prominent lymph nodes adjacent to the mass near the nathanael hepatis, for example portal caval node (25/64) measures 9 mm. A peripancreatic node (25/63) measures 6 mm. Bowel and peritoneum: No bowel obstruction or pathologic ascites. Small hiatal hernia. There are colonic diverticula. Body wall: Unremarkable Bones: Scattered degenerative changes without acute or suspicious osseous abnormality. There are endplate deformities that may also be chronic. 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 Vascular descriptions as above. Prominent upper abdominal lymph nodes as above, not enlarged by size criteria. This MRI is limited by motion artifact. Dictated by: Javier Epstein M.D. on 03/12/2022 at 12:17 Approved by: Javier Epstein M.D. on 03/12/2022 at 12:29
== END ==
PROVIDERS: Family Provider Family Medicine; PCP Family Medicine; Referring Provider Family Medicine; Visit Provider Family Medicine
DX: K86.89 Other specified diseases of pancreas (principal)
CPT/HCPCS: 74183

== ENCOUNTER 2022-04-01 14:49 | Inpatient (IN) | payer MEDICARE, SELFPAY ==
[2022-04-01] VITALS (37 sets, daily range): BP systolic 102–164; BP diastolic 51–108; PULSE 74–163; RESP 6–37; TEMP 36.3–36.8; O2SAT 94–99; BMI 30.3
--- NOTE | 2022-04-01 15:20 | DI.RAD.S_ITS ---
PROCEDURE: XR CHEST 1V INDICATIONS: Flu like symptoms TECHNIQUE: One view of the chest was acquired. COMPARISON: [facility], CR, XR CHEST 1V, 02/02/2021, 11:42. FINDINGS: Surgical changes and devices: None. Lungs and pleura: Lungs are clear. No pleural effusions or pneumothorax. Mediastinum: Mediastinal contours appear normal. Heart size is normal. Bones and chest wall: No suspicious bony lesions. Overlying soft tissues appear unremarkable. IMPRESSION: No acute finding. Dictated by: Brian Morton M.D. on 04/01/2022 at 15:19 Approved by: Brian Morton M.D. on 04/01/2022 at 15:22
[2022-04-01 15:35] LABS: INR 1.2 (0.9-1.3); Prothrombin Time 13.8 SECONDS (10.1-12.7)
[2022-04-01 15:38] LABS: PTT Partial Thromboplastin Tim 29 SECONDS (26-36)
--- NOTE | 2022-04-01 15:38 | ED_ITS ---
HPI - Weakness General Chief complaint: Weakness Stated complaint: Nausea, Weakness, Not eating/drinking Time Seen by Provider: 04/01/22 15:36 Source: patient Mode of arrival: Wheelchair History of Present Illness HPI Narrative: Primary care doctor Brian Hernandez sent patient here for evaluation. Patient here with daughter. She has been recently diagnosed with pancreatic mass/cancer last month. She has all of her referrals and follow-up next month. Dr. Ureña with oncology has referred her to [facility]. In the past 2 weeks patient has had poor appetite little to eat or drink. Is very fatigued tired and dizzy when she gets up. No prior history of atrial fibrillation. EKG here does show AFib with RVR. Patient is not on any blood thinners. Patient denies any chest pain dyspnea. At this time no abdominal pain. No recent illness cough cold congestion fever or chills Daughter states has had very little urine output and when it is it is dark urine Related Data Home Medications Medication Instructions Recorded Confirmed metoprolol succinate 50 mg 50 mg PO DAILY 03/24/22 04/01/22 tablet,extended release 24 hr Previous Rx's Medication Instructions Recorded Disabled Parking #1 ea 11/09/21 tramadol 50 mg tablet 50 mg PO BID PRN pain #14 tabs 03/05/22 lipase 4,200-protease 2 cap PO TID #180 caps 03/16/22 14,200-amylase 24,600 unit capsule,delayed rel (Pancreaze) ondansetron 4 mg disintegrating 4 mg PO Q8H #20 tabs 03/29/22 tablet Allergies Allergy/AdvReac Type Severity Reaction Status Date / Time No Known Drug Allergies Allergy Verified 04/01/22 15:09 Review of Systems Review of Systems Narrative: GENERAL: negative chills, positive fatigue, malaise, negative fever, sweats. Positive cachexia HEENT: negative sinus pain, ear pain, sore throat RESPIRATORY: negative dyspnea, cough CARDIOVASCULAR: negative chest pain, palpitations GASTROINTESTINAL: negative nausea, vomiting, abdominal pain : negative dysuria, frequency, hematuria, positive oliguria MUSCULOSKELETAL: negative muscle or bony pain SKIN: negative rash, skin lesions NEUROLOGIC: negative weakness, numbness ROS Unobtainable: All systems reviewed & are unremarkable except as noted in HPI and below Patient History Medical History Carotid artery disease Cerebrovascular accident (CVA) (02/18/14) Chronic back pain Diverticulitis of intestine with abscess Diverticulitis of large intestine with abscess without bleeding (04/29/17) Measles Osteoarthritis (~2008) Partial blindness (~1999) Pyelonephritis Scarlet fever Skin cancer (~2009) Stroke (~1999) Supraventricular tachycardia (02/18/14) Vertigo Vision disorder Surgical History Anesthesia History of bilateral salpingo-oophorectomy (BSO) History of neck surgery (~1999) Status post appendectomy Status post hysterectomy (~1969) Family History Brother Cancer Child Age: 54 Heart disease Father Heart disease Stroke Mother Heart disease Liver disease Social History marital status: lives independently: Yes caregiver/support person: No Smoking Status: Current every day smoker alcohol intake: current substance use type: does not use Smoking Status: Current every day smoker tobacco type: cigarettes alcohol intake frequency: holidays/special occasions only Substance Use Type: does not use Exam Narrative Exam Narrative: GENERAL: in no distress, not toxic not dyspneic HEAD: Normocephalic. EYES: Pupils equal round No scleral icterus. ENT: Dry lips and tongue NECK: Trachea midline. CARDIOVASCULAR: Tachycardic with irregular irregular RESPIRATORY: Clear to auscultation. Breath sounds equal bilaterally. No wheezes, rales, or rhonchi. GASTROINTESTINAL: Abdomen soft, non-tender abdomen is soft nontender no peritoneal signs bowel sounds are present EXTREMITIES: No gross deformities. BACK: No flank tenderness. NEURO: AOx4. SKIN: Warm and dry, decreased skin turgor on the neck PSYCH: Not anxious, is cooperative Initial Vital Signs Initial Vital Signs: Vital Signs Temperature 97.4 F L 04/01/22 15:02 Pulse Rate 74 04/01/22 15:02 Respiratory Rate 22 04/01/22 15:02 Blood Pressure 128/70 04/01/22 15:02 Pulse Oximetry 98 04/01/22 15:02 Oxygen Delivery Method 04/01/22 15:02 Course Course Course Narrative: No new issues during course of stay Decision to Admit Date: 04/01/22 Decision to Admit time: 15:41 Orders Ordered: ED Orders 04/01/22 15:18 Complete Blood Count AUTO DIFF Stat Comprehensive Metabolic Panel Stat Covid-19 + FLU A/B + RSV - PCR Stat Lipase Stat Magnesium Stat Partial Thromboplastin Time Stat Prothrombin Time INR Stat Troponin & CK Cardiac Panel Stat 04/01/22 15:20 XR chest 1V Stat Urinalysis and Microscopic Stat 04/01/22 15:28 EKG-12 Lead Stat Acetaminophen (Acetaminophen 325 Mg Tablet) 650 mg PO Q6H PRN PRN Reason: Fever/Mild Pain (1-3) Hydrocodone Bitart/Acetaminophen (Hydrocodone/Acet 5/325 Tablet) 1 tab PO Q4H PRN PRN Reason: Pain, Moderate (4-6) Lipase/Protease/Amylase (Lipase/Protease/Amylase / Cap) 2 cap PO TID BALDEMAR Enoxaparin Sodium (Enoxaparin 40 Mg/0.4 Ml Syringe) 40 mg SUBCUT DAILY BALDEMAR DILTIAZEM (Diltiazem 125 Mg/125 Ml-D5w) 125 mg in 125 mls @ 5 mls/hr IV TITRATE BALDEMAR; Protocol Last Admin: 04/01/22 17:38 Dose: Not Given Documented By: MARCEL Dextrose/Sodium Chloride (Dextrose 5%-0.9% Ns) 1,000 mls @ 100 mls/hr IV CONT BALDEMAR DILTIAZEM (Diltiazem 125 Mg/125 Ml-D5w) 125 mg in 125 mls @ 5 mls/hr IV TITRATE STA; Protocol Stop: 04/02/22 17:31 Last Titration: 04/01/22 17:40 Dose: 10 mg/hr, 10 mls/hr Documented By: Admin: 04/01/22 16:49 Dose: 5 mg/hr, 5 mls/hr Documented By: MARCEL Magnesium Hydroxide (Magnesium Hydroxide 30 Ml Udc) 30 ml PO BEDTIME PRN PRN Reason: Constipation Metoprolol Succinate (Metoprolol Er 50 Mg Tablet) 50 mg PO DAILY BALDEMAR Pantoprazole Sodium (Pantoprazole Dr 40 Mg Tablet) 40 mg PO 0700 BALDEMAR Sennosides (Sennosides 8.6 Mg Tablet) 8.6 mg PO BID BALDEMAR Discontinued Medications Sodium Chloride (Normal Saline 0.9%) 1,000 mls @ 1,000 mls/hr IV BOLUS ONE Stop: 04/01/22 16:36 Last Infusion: 04/01/22 16:59 Dose: 0 mls/hr Documented By: Admin: 04/01/22 15:55 Dose: 1,000 mls/hr Documented By: MARCEL Reevaluation(s) Reevaluation #1: Reviewed results with patient and family. They do agree with admit. Primary care Dr. Ordonez is at bedside right now to admit patient Time: 16:17 Consultations Consultation #1: Spoke with primary care Dr. Ordonez, he will admit patient, we to start Cardizem drip now. Patient is stable at this time but will require a drip. Will need to admit to ICU Time: 16:17 Vital Signs Vital signs: Vital Signs - 8 hr 04/01/22 15:02 04/01/22 15:37 04/01/22 15:41 Temperature 97.4 F L Pulse Rate 74 163 H Respiratory Rate 22 31 H Blood Pressure 128/70 123/94 H Pulse Oximetry 98 98 Oxygen Delivery Method Room Air 04/01/22 15:41 04/01/22 16:00 04/01/22 16:00 Temperature Pulse Rate 157 H 156 H Respiratory Rate 35 H 20 Blood Pressure 133/95 H Pulse Oximetry 98 95 Oxygen Delivery Method Room Air MDM - Weakness Differential Diagnosis Differential diagnosis: Likely anemia, sepsis, dehydration and other (New onset atrial fibrillation) Lab Data Result diagrams: 04/01/22 15:18 04/01/22 15:18 Labs: Lab Results 04/01/22 04/01/22 04/01/22 Range/Units 15:18 15:18 15:18 WBC 10.1 (4.5-11.0) X10^3/uL RBC 4.81 (4.0-5.2) X10^6/uL Hgb 14.1 (12.0-16.0) g/dL Hct 42.2 (36-46) % MCV 87.7 (80-100) fL MCH 29.3 (26-34) PG MCHC 33.4 (30-36) % RDW 14.7 (11.6-14.8) % Plt Count 397 (150-400) X10^3/uL Neut % (Auto) 62.8 (50-75) % Lymph % (Auto) 24.7 L (25-40) % [place] % (Auto) 8.6 (3-14) % Eos % (Auto) 3.4 (2-4) % Baso % (Auto) 0.5 (0-2) % Neut # (Auto) 6400 (0077-2843) /uL Lymph # (Auto) 2500 (2848-5248) /uL [place] # (Auto) 900 (0-900) /uL Eos # (Auto) 300 (0-450) /uL Baso # (Auto) 0 (0-100) /uL PT 13.8 H (10.1-12.7) SECONDS INR 1.2 (0.9-1.3) APTT 29 (26-36) SECONDS Sodium 140 (137-145) mmol/L Potassium 4.3 (3.4-5.1) mmol/L Chloride 100 (98-107) mmol/L Carbon Dioxide 26 (22-32) mmol/L BUN 18 H (7-17) mg/dL Creatinine 1.79 H (0.52-1.04) mg/dL Estimated GFR 28 L (>60) mL/min BUN/Creatinine Ratio 10.1 (6-22) Glucose 95 (80-110) mg/dL Calcium 9.5 (8.4-10.2) mg/dL Magnesium 2.2 (1.6-2.3) mg/dL Total Bilirubin 0.9 (0.2-1.3) mg/dL AST 27 (14-36) IU/L ALT 25 (<35) IU/L Alkaline Phosphatase 103 (38-126) U/L Total Creatine Kinase 34 (30-135) U/L CK-MB (CK-2) TNP CK-MB (CK-2) Rel Index TNP Troponin I 0.014 (0.01-0.034) ng/mL Total Protein 7.8 (6.3-8.2) g/dL Albumin 4.2 (3.5-5.0) g/dL Globulin 3.6 (1.7-4.1) g/dL Albumin/Globulin Ratio 1.2 (1.0-2.8) Lipase 737 H (23-300) U/L SARS-CoV-2 (PCR) (Negative) Influenza A (RT-PCR) (NEGATIVE) Influenza B (RT-PCR) (NEGATIVE) RSV (PCR) (Negative) 04/01/22 Range/Units 15:18 WBC (4.5-11.0) X10^3/uL RBC (4.0-5.2) X10^6/uL Hgb (12.0-16.0) g/dL Hct (36-46) % MCV (80-100) fL MCH (26-34) PG MCHC (30-36) % RDW (11.6-14.8) % Plt Count (150-400) X10^3/uL Neut % (Auto) (50-75) % Lymph % (Auto) (25-40) % [place] % (Auto) (3-14) % Eos % (Auto) (2-4) % Baso % (Auto) (0-2) % Neut # (Auto) (0379-2746) /uL Lymph # (Auto) (9972-3638) /uL [place] # (Auto) (0-900) /uL Eos # (Auto) (0-450) /uL Baso # (Auto) (0-100) /uL PT (10.1-12.7) SECONDS INR (0.9-1.3) APTT (26-36) SECONDS Sodium (137-145) mmol/L Potassium (3.4-5.1) mmol/L Chloride (98-107) mmol/L Carbon Dioxide (22-32) mmol/L BUN (7-17) mg/dL Creatinine (0.52-1.04) mg/dL Estimated GFR (>60) mL/min BUN/Creatinine Ratio (6-22) Glucose (80-110) mg/dL Calcium (8.4-10.2) mg/dL Magnesium (1.6-2.3) mg/dL Total Bilirubin (0.2-1.3) mg/dL AST (14-36) IU/L ALT (<35) IU/L Alkaline Phosphatase (38-126) U/L Total Creatine Kinase (30-135) U/L CK-MB (CK-2) CK-MB (CK-2) Rel Index Troponin I (0.01-0.034) ng/mL Total Protein (6.3-8.2) g/dL Albumin (3.5-5.0) g/dL Globulin (1.7-4.1) g/dL Albumin/Globulin Ratio (1.0-2.8) Lipase (23-300) U/L SARS-CoV-2 (PCR) Negative (Negative) Influenza A (RT-PCR) Flu a negative (NEGATIVE) Influenza B (RT-PCR) Flu b negative (NEGATIVE) RSV (PCR) Negative (Negative) Imaging Data Chest x-ray: Radiologist Impression: [address] [address] XRay Report Signed Patient: Stefanie Galaviz MR#: [id number] : 1940 Acct:[id number] Age/Sex: 82 / F Date of Service: 04/01/22 Loc: 90A-1 Accession Number: [id number] ?? Procedure: XR chest 1V Ordering Provider: Melquiades Judd MD PROCEDURE:? XR CHEST 1V ? INDICATIONS:? Flu like symptoms ? TECHNIQUE:? One view of the chest was acquired.? ? COMPARISON:? [facility], , XR CHEST 1V, 02/02/2021, 11:42. ? FINDINGS:? ? Surgical changes and devices:? None.? ? Lungs and pleura:? Lungs are clear.? No pleural effusions or pneumothorax.? ? Mediastinum:? Mediastinal contours appear normal.? Heart size is normal.? ? Bones and chest wall:? No suspicious bony lesions.? Overlying soft tissues appear unremarkable.? ? IMPRESSION:? No acute finding. ? ? Dictated by: Brian Morton M.D. on 04/01/2022 at 15:19 ? ? Approved by: Brian Morton M.D. on 04/01/2022 at 15:22 ? ECG Data Interpretation: Atrial fibrillation with RVR rate [address] elevation MDM Narrative Medical decision making narrative: Appropriate for admission for dehydration/IV fluids/new onset atrial fibrillation. Reviewed patient and daughter agree for admit. Referred/reviewed with primary care services and will admit patient. Patient requiring ICU for Cardizem drip Critical Care Time Critical Care Time Attestation: Critical Care Time 35 minutes: Critical care time is separate from other billable procedures. This critical care time includes consultation with family and other consulting doctors, review of records, and interpretation of data from labs, EKGs, imaging, etc. Discharge Plan Departure Patient Disposition: Admitted As Inpatient Clinical Impression: Atrial fibrillation, new onset Admit Date/Time: 04/01/22 16:15 Admit Provider: Brian Ordonez
[2022-04-01 15:39] LABS: Alanine Aminotransferase 25 IU/L (<35); Albumin 4.2 g/dL (3.5-5.0); Albumin Globulin Ratio 1.2 (1.0-2.8); Alkaline Phosphatase 103 U/L (38-126); Aspartate Aminotransferase 27 IU/L (14-36); BUN Creatinine Ratio 10.1 (6-22); Bilirubin Total 0.9 mg/dL (0.2-1.3); Blood Urea Nitrogen 18 mg/dL (7-17); Calcium 9.5 mg/dL (8.4-10.2); Carbon Dioxide 26 mmol/L (22-32); Chloride 100 mmol/L (98-107); Creatine Kinase 34 U/L (30-135); Estimated Glomerular Filt Rate 28 mL/min (>60); Globulin 3.6 g/dL (1.7-4.1); Glucose 95 mg/dL (80-110); HEMOLYSIS < 15 (0-50); Lipase 737 U/L (23-300); Magnesium 2.2 mg/dL (1.6-2.3); Potassium 4.3 mmol/L (3.4-5.1); Sodium 140 mmol/L (137-145); Total Protein 7.8 g/dL (6.3-8.2)
[2022-04-01 15:43] LABS: Add Manual Diff / Slide Review NO; Basophils Absolute Auto 0 /uL (0-100); Basophils Percent Auto 0.5 % (0-2); Eosinophils Absolute Auto 300 /uL (0-450); Eosinophils Percent Auto 3.4 % (2-4); Hematocrit 42.2 % (36-46); Hemoglobin 14.1 g/dL (12.0-16.0); Lymphocytes Absolute Auto 2500 /uL (1100-4500); Lymphocytes Percent Auto 24.7 % (25-40); Mean Corpuscular HGB Conc 33.4 % (30-36); Mean Corpuscular Hemoglobin 29.3 PG (26-34); Mean Corpuscular Volume 87.7 fL (80-100); Monocytes Absolute Auto 900 /uL (0-900); Monocytes Percent Auto 8.6 % (3-14); Neutrophils Absolute Auto 6400 /uL (1500-7000); Neutrophils Percent Auto 62.8 % (50-75); Platelet Count 397 X10^3/uL (150-400); Red Blood Cell Count 4.81 X10^6/uL (4.0-5.2); Red Cell Distribution Width 14.7 % (11.6-14.8); White Blood Cell Count 10.1 X10^3/uL (4.5-11.0)
[2022-04-01 15:51] LABS: Troponin I 0.014 ng/mL (0.01-0.034)
[2022-04-01] MEDS: SODIUM CHLORIDE 0.9% 1,000 ML 1000 ML IV (15:55)
[2022-04-01 16:10] LABS: Influenza A - CEPHEID Flu A NEGATIVE (NEGATIVE); Influenza B - CEPHEID Flu B NEGATIVE (NEGATIVE); Respiratory Syncytial Virus Negative (Negative)
--- NOTE | 2022-04-01 16:34 | PM.HP.1 ---
History of Present Illness History of Present Illness Date Patient Seen: 04/01/22 Time Patient Seen: 16:34 Chief complaint: Nausea, Weakness, Not eating/drinking Narrative: 82-year-old female history of hypertension hyperlipidemia carotid artery disease smoking history and recent diagnosis of pancreatic mass concerning for pancreatic cancer presents to the emergency department with weakness. Patient was diagnosed a few weeks ago with a mass in the head of her pancreas found on ultrasound. Further evaluation with MRI showed pancreatic mass concerning for adenocarcinoma of the head of the pancreas. Since the diagnosis patient has been feeling more weak. She was having some pretty consistent diarrhea and was started on pancreatic enzymes. Diarrhea resolved in the last 3-4 days she is become more weak and having a hard time getting out of bed she is not been eating she is had a loss of appetite she is not having any chest pain. She says she is had a little bit of a fast heart rate. She normally takes metoprolol. Her daughter visits her regularly and went over tonight and she could not get out of bed. She was concerned so she brought her to the emergency department. She is not complaining of cough or fevers or chills. She is not have any chest pain. Some mild shortness of breath. She says she has no appetite. And she is feeling quite weak. She also says she is not had a bowel movement for a few days. Patient History Medical History Carotid artery disease Cerebrovascular accident (CVA) (02/18/14) Chronic back pain Diverticulitis of intestine with abscess Diverticulitis of large intestine with abscess without bleeding (04/29/17) Measles Osteoarthritis (~2008) Partial blindness (~1999) Pyelonephritis Scarlet fever Skin cancer (~2009) Stroke (~1999) Supraventricular tachycardia (02/18/14) Vertigo Vision disorder Surgical History Anesthesia History of bilateral salpingo-oophorectomy (BSO) History of neck surgery (~1999) Status post appendectomy Status post hysterectomy (~1969) Family & Social History Family History Brother Cancer Child Age: 54 Heart disease Father Heart disease Stroke Mother Heart disease Liver disease Social History: lives independently Yes caregiver/support person No Safety & Behavioral: Feels Safe in Current Yes Environment Been Physically Hurt or No Threatened By a Person Tobacco & Substance use: Smoking Status Current every day smoker alcohol intake current alcohol intake frequency holiday/special occasion Substance Use Type does not use Meds Home Medications and Allergies Home Medications Medication Instructions Recorded Confirmed Type Disabled Parking #1 ea 11/09/21 04/01/22 Rx tramadol 50 mg tablet 50 mg PO BID PRN pain #14 tabs 03/05/22 04/01/22 Rx lipase 4,200-protease 2 cap PO TID #180 caps 03/16/22 04/01/22 Rx 14,200-amylase 24,600 unit capsule,delayed rel (Pancreaze) metoprolol succinate 50 mg 50 mg PO DAILY 03/24/22 04/01/22 History tablet,extended release 24 hr ondansetron 4 mg disintegrating 4 mg PO Q8H #20 tabs 03/29/22 04/01/22 Rx tablet Allergies Allergy/AdvReac Type Severity Reaction Status Date / Time No Known Drug Allergies Allergy Verified 04/01/22 15:09 Exam Vital Signs (past 8 hours): - 04/01/22 15:02 04/01/22 15:37 04/01/22 15:41 Temperature 97.4 F L Pulse Rate 74 163 H Respiratory Rate 22 31 H Blood Pressure 128/70 123/94 H Pulse Oximetry 98 98 Oxygen Delivery Method Room Air 04/01/22 15:41 04/01/22 16:00 04/01/22 16:00 Temperature Pulse Rate 157 H 156 H Respiratory Rate 35 H 20 Blood Pressure 133/95 H Pulse Oximetry 98 95 Oxygen Delivery Method Room Air Oxygen Delivery Method Room Air Narrative Exam Narrative: Gen.: Alert and oriented x3 no apparent distress. HEENT: NCAT PERRLA tympanic membranes are clear nares are patent oral mucosa is moist no tonsillar hypertrophy neck is supple without lymphadenopathy no thyroid enlargement. Cardio: S1-S2 regular rate and rhythm no murmurs appreciated. Respiratory: Lungs are clear to auscultation no wheezes or crackles normal respiratory effort. Abdomen: Soft nontender no rebound or guarding no liver spleen enlargement no appreciable hernias Extremities: Full range of motion no appreciable weakness no cyanosis or edema. Neurologic: Grossly intact. Objective Labs Result Diagrams: 04/01/22 15:18 04/01/22 15:18 Labs: Laboratory Results - last 24 hr 04/01/22 04/01/22 04/01/22 15:18 15:18 15:18 WBC 10.1 RBC 4.81 Hgb 14.1 Hct 42.2 MCV 87.7 MCH 29.3 MCHC 33.4 RDW 14.7 Plt Count 397 Neut % (Auto) 62.8 Lymph % (Auto) 24.7 L [place] % (Auto) 8.6 Eos % (Auto) 3.4 Baso % (Auto) 0.5 Neut # (Auto) 6400 Lymph # (Auto) 2500 [place] # (Auto) 900 Eos # (Auto) 300 Baso # (Auto) 0 PT 13.8 H INR 1.2 APTT 29 Sodium 140 Potassium 4.3 Chloride 100 Carbon Dioxide 26 BUN 18 H Creatinine 1.79 H Estimated GFR 28 L BUN/Creatinine Ratio 10.1 Glucose 95 Calcium 9.5 Magnesium 2.2 Total Bilirubin 0.9 AST 27 ALT 25 Alkaline Phosphatase 103 Total Creatine Kinase 34 CK-MB (CK-2) TNP CK-MB (CK-2) Rel Index TNP Troponin I 0.014 Total Protein 7.8 Albumin 4.2 Globulin 3.6 Albumin/Globulin Ratio 1.2 Lipase 737 H Assessment & Plan Assessment and plan (1) Atrial fibrillation, new onset: Status: Acute (2) Cancer of head of pancreas: Status: Acute Plan New onset AFib with rapid ventricular response patient has not EKG with a heart rate of 130s to 140s as high as 150s. She is feeling weak. She is not hypotensive. Does not need to be cardioverted. She is not on anticoagulation. She will be started on Cardizem drips and metoprolol orally. Hopefully we can wean her heart rate down with hydration and Cardizem and convert her to oral metoprolol. She is at risk for stroke due to her age and risk factors. I would generally routinely start her on stroke prevention and prophylaxis but patient will be having a procedure [facility] earlier this week for a biopsy of the mass of her pancreas so at this time we will hold off on starting her on anticoagulation. She will be placed on DVT prophylaxis so. Will wean her Cardizem drips to keep her heart rate controlled Pancreatic mass. Patient with a pancreatic mass concerning for pancreatic adenocarcinoma. Patient has had some significant diarrhea and weakness and decreased oral intake. Will provide IV fluids. Zofran as needed for nausea. She has a mildly elevated lipase but not having significant abdominal pain at this time. Will provide diet as tolerated. She has a follow-up appointment for further evaluation and potential biopsy at [facility] on Tuesday and Tuesday this coming week. Acute kidney injury on chronic renal failure. Patient comes in with mild bump in her creatinine above baseline. Probably due to dehydration weakness and her atrial fibrillation. Will provide gentle fluid hydration for the patient. Constipation. Patient is constipated she is not been eating well and dehydrated. Will provide a stool softening regimen and hopefully we can get her bowels moving again. Hypertension. Her blood pressure is well controlled at this time. Will add back in her metoprolol for help with rate control. Code status currently full code Prophylaxis with DVT Disposition plan patient will be admitted to the ICU on Cardio Azactam drips and be admitted as an inpatient. Time Spent With Patient Critical Care time: I spent a total of [] minutes of critical care time on this patient's care today; this time is exclusive of procedural time.
[2022-04-01 16:40] LABS: COVID-19 CEPHEID 4-PLEX PCR Negative (Negative)
[2022-04-01] MEDS: DILTIAZEM 125 MG/125 ML PIGGYBACK IV (16:49)
--- NOTE | 2022-04-01 18:55 | PC.NURSE ---
181: Pt transferred upstairs, diltiazem running at 10mg/hr. Passed on to acute care nurse.
[2022-04-01 19:24] LABS: Appearance Urine UA SL CLOUDY; Bilirubin Urine UA NEGATIVE (NEGATIVE); Color Urine UA YELLOW; Glucose Urine UA NEGATIVE (Negative); Ketones Urine UA 1+ (NEGATIVE); Leukocyte Esterase Urine UA TRACE (NEGATIVE); Nitrite Urine UA POSITIVE (Negative); Occult Blood Urine UA 1+ (Negative); Protein Urine UA 1+ (Negative); Specific Gravity Urine UA 1.025 (1.000-1.035); Urobilinogen Urine UA 0.2 E.U./dL (0.2)
[2022-04-01 19:44] LABS: Bacteria Urine Many (>30); Culture Indicated Urine Specimen Cultured; RBC Urine 1-5/HPF (0-5/HPF); Renal Epithelial Cells Urine 0-1/HPF (0-1/HPF); Squamous Epithelial Cell Urine 5-10 /HPF (0-5/HPF); WBC Urine 10-30/HPF (0-5/HPF)
[2022-04-01] MEDS: SENNOSIDES 8.6 MG TABLET PO (21:09)
[2022-04-01] MEDS: LIPASE/PROTEASE/AMYLASE 5/17/24 CAP PO (21:10)
[2022-04-01] MEDS: DEXTROSE 5%-0.9% NS 1,000 ML 100 ML IV (21:11)
[2022-04-02] VITALS (19 sets, daily range): BP systolic 109–162; BP diastolic 56–88; PULSE 81–126; RESP 16–47; TEMP 36.2–37; O2SAT 93–99
[2022-04-02] MEDS: DILTIAZEM 125 MG/125 ML PIGGYBACK 10 MG IV (01:46)
[2022-04-02] MEDS: ONDANSETRON 4 MG ODT SL ×2 (03:07→10:20)
--- NOTE | 2022-04-02 03:09 | PC.NURSE ---
Patient complaining of nausea and states she takes that little pill under her tongue. Tried soda and crackers, but nausea not improving. Dr. Puckett phones and new orders noted. Patient medicated with zofran ODT awaiting results.
[2022-04-02 04:53] LABS: Add Manual Diff / Slide Review NO; Basophils Absolute Auto 100 /uL (0-100); Basophils Percent Auto 0.9 % (0-2); Eosinophils Absolute Auto 200 /uL (0-450); Eosinophils Percent Auto 2.2 % (2-4); Hematocrit 36.3 % (36-46); Lymphocytes Absolute Auto 1400 /uL (1100-4500); Lymphocytes Percent Auto 16.3 % (25-40); Mean Corpuscular Volume 87.8 fL (80-100); Monocytes Absolute Auto 1000 /uL (0-900); Monocytes Percent Auto 11.4 % (3-14); Neutrophils Absolute Auto 5800 /uL (1500-7000); Neutrophils Percent Auto 69.2 % (50-75); Platelet Count 292 X10^3/uL (150-400); Red Blood Cell Count 4.14 X10^6/uL (4.0-5.2); Red Cell Distribution Width 14.7 % (11.6-14.8); White Blood Cell Count 8.4 X10^3/uL (4.5-11.0)
[2022-04-02 04:56] LABS: Alanine Aminotransferase 19 IU/L (<35); Albumin 3.3 g/dL (3.5-5.0); Albumin Globulin Ratio 1.1 (1.0-2.8); Alkaline Phosphatase 78 U/L (38-126); Aspartate Aminotransferase 19 IU/L (14-36); BUN Creatinine Ratio 10.4 (6-22); Bilirubin Total 0.6 mg/dL (0.2-1.3); Blood Urea Nitrogen 16 mg/dL (7-17); Calcium 8.3 mg/dL (8.4-10.2); Carbon Dioxide 24 mmol/L (22-32); Chloride 107 mmol/L (98-107); Estimated Glomerular Filt Rate 34 mL/min (>60); Globulin 2.9 g/dL (1.7-4.1); Glucose 142 mg/dL (80-110); HEMOLYSIS < 15 (0-50); Potassium 3.8 mmol/L (3.4-5.1); Sodium 140 mmol/L (137-145); Total Protein 6.2 g/dL (6.3-8.2)
[2022-04-02] MEDS: PANTOPRAZOLE DR 40 MG TABLET PO (06:13)
[2022-04-02] MEDS: DEXTROSE 5%-0.9% NS 1,000 ML 100 ML IV (06:53)
[2022-04-02] MEDS: ENOXAPARIN 40 MG/0.4 ML SYRINGE SUBCUT (08:22)
[2022-04-02] MEDS: SENNOSIDES 8.6 MG TABLET PO ×2 (08:23→20:41)
[2022-04-02] MEDS: METOPROLOL ER 50 MG TABLET PO (08:23)
[2022-04-02] MEDS: LIPASE/PROTEASE/AMYLASE 5/17/24 CAP PO ×3 (08:23→20:41)
--- NOTE | 2022-04-02 09:15 | PM.PN.1 ---
Subjective Subjective Date Patient Seen: 04/02/22 Time Patient Seen: 09:15 Interval history: Patient seen and evaluated this morning she is comfortable in bed. She said she had a good night last night she is feeling better. Heart rate much better under control. Started on oral metoprolol. Blood pressure stable. Still on some IV fluids. She says she is less nauseated feels like she has more energy. Still no bowel movement. Exam Vital Signs (past 8 hours): - 04/02/22 02:00 04/02/22 02:03 04/02/22 02:03 Temperature Pulse Rate 84 96 H Respiratory Rate 24 27 H Blood Pressure 141/69 H Pulse Oximetry 93 93 Oxygen Delivery Method Oxygen Flow Rate 04/02/22 03:00 04/02/22 03:06 04/02/22 03:06 Temperature Pulse Rate 90 98 H Respiratory Rate 27 H 39 H Blood Pressure 162/69 H Pulse Oximetry 93 95 Oxygen Delivery Method Oxygen Flow Rate 04/02/22 04:00 04/02/22 04:04 04/02/22 04:04 Temperature 98.2 F Pulse Rate 88 112 H Respiratory Rate 22 26 H Blood Pressure 144/68 H Pulse Oximetry 95 97 Oxygen Delivery Method Oxygen Flow Rate 0 04/02/22 07:00 04/02/22 08:00 04/02/22 08:00 Temperature 98.6 F Pulse Rate 83 90 Respiratory Rate 36 H 30 H Blood Pressure 130/63 Pulse Oximetry 96 97 Oxygen Delivery Method Oxygen Flow Rate 0 04/02/22 08:53 04/02/22 07:00 Temperature Pulse Rate 81 Respiratory Rate Blood Pressure 130/68 Pulse Oximetry Oxygen Delivery Method Room Air Oxygen Flow Rate Oxygen Delivery Method Room Air Oxygen Flow Rate 0 Narrative Exam Narrative: Gen.: Alert good historian HEENT: Pupils equal round and reactive or mucosa is moist Cardio: S1-S2 irregular rate and rhythm systolic murmur Respiratory: Normal respiratory effort lungs are clear Abdomen: Soft nontender no rebound or guarding no liver spleen enlargement no appreciable hernias Extremities: Full range of motion no appreciable weakness no cyanosis or edema. Neurologic: Grossly intact. Objective Labs Result Diagrams: 04/02/22 04:23 04/02/22 04:23 Labs: Laboratory Results - last 24 hr 04/01/22 04/01/22 04/01/22 15:18 15:18 15:18 WBC 10.1 RBC 4.81 Hgb 14.1 Hct 42.2 MCV 87.7 MCH 29.3 MCHC 33.4 RDW 14.7 Plt Count 397 Neut % (Auto) 62.8 Lymph % (Auto) 24.7 L Woodruff % (Auto) 8.6 Eos % (Auto) 3.4 Baso % (Auto) 0.5 Neut # (Auto) 6400 Lymph # (Auto) 2500 Woodruff # (Auto) 900 Eos # (Auto) 300 Baso # (Auto) 0 PT 13.8 H INR 1.2 APTT 29 Sodium 140 Potassium 4.3 Chloride 100 Carbon Dioxide 26 BUN 18 H Creatinine 1.79 H Estimated GFR 28 L BUN/Creatinine Ratio 10.1 Glucose 95 Calcium 9.5 Magnesium 2.2 Total Bilirubin 0.9 AST 27 ALT 25 Alkaline Phosphatase 103 Total Creatine Kinase 34 CK-MB (CK-2) TNP CK-MB (CK-2) Rel Index TNP Troponin I 0.014 Total Protein 7.8 Albumin 4.2 Globulin 3.6 Albumin/Globulin Ratio 1.2 Lipase 737 H Urine Color Urine Appearance Urine pH Ur Specific [place] Urine Protein Urine Glucose (UA) Urine Ketones Urine Occult Blood Urine Nitrate Urine Bilirubin Urine Urobilinogen Ur Leukocyte Esterase Urine RBC Urine WBC Ur Squamous Epith Cells Ur Renal Epithelial Cell Urine Bacteria Ur Culture Indicated? Nasal Screen MRSA (PCR) SARS-CoV-2 (PCR) Influenza A (RT-PCR) Influenza B (RT-PCR) RSV (PCR) 04/01/22 04/01/22 04/01/22 15:18 18:30 19:15 WBC RBC Hgb Hct MCV MCH MCHC RDW Plt Count Neut % (Auto) Lymph % (Auto) Woodruff % (Auto) Eos % (Auto) Baso % (Auto) Neut # (Auto) Lymph # (Auto) Woodruff # (Auto) Eos # (Auto) Baso # (Auto) PT INR APTT Sodium Potassium Chloride Carbon Dioxide BUN Creatinine Estimated GFR BUN/Creatinine Ratio Glucose Calcium Magnesium Total Bilirubin AST ALT Alkaline Phosphatase Total Creatine Kinase CK-MB (CK-2) CK-MB (CK-2) Rel Index Troponin I Total Protein Albumin Globulin Albumin/Globulin Ratio Lipase Urine Color Yellow Urine Appearance Sl cloudy Urine pH 5.0 Ur Specific [place] 1.025 Urine Protein 1+ H Urine Glucose (UA) Negative Urine Ketones 1+ H Urine Occult Blood 1+ H Urine Nitrate Positive H Urine Bilirubin Negative Urine Urobilinogen 0.2 Ur Leukocyte Esterase Trace H Urine RBC 1-5/hpf Urine WBC 10-30/hpf H Ur Squamous Epith Cells 5-10 /hpf H Ur Renal Epithelial Cell 0-1/hpf Urine Bacteria Many (>30) H Ur Culture Indicated? Specimen cultured Nasal Screen MRSA (PCR) Negative for mrsa SARS-CoV-2 (PCR) Negative Influenza A (RT-PCR) Flu a negative Influenza B (RT-PCR) Flu b negative RSV (PCR) Negative 04/02/22 04/02/22 04:23 04:23 WBC 8.4 RBC 4.14 Hgb 12.0 Hct 36.3 MCV 87.8 MCH 29.0 MCHC 33.0 RDW 14.7 Plt Count 292 Neut % (Auto) 69.2 Lymph % (Auto) 16.3 L Woodruff % (Auto) 11.4 Eos % (Auto) 2.2 Baso % (Auto) 0.9 Neut # (Auto) 5800 Lymph # (Auto) 1400 Woodruff # (Auto) 1000 H Eos # (Auto) 200 Baso # (Auto) 100 PT INR APTT Sodium 140 Potassium 3.8 Chloride 107 Carbon Dioxide 24 BUN 16 Creatinine 1.54 H Estimated GFR 34 L BUN/Creatinine Ratio 10.4 Glucose 142 H Calcium 8.3 L Magnesium 2.0 Total Bilirubin 0.6 AST 19 ALT 19 Alkaline Phosphatase 78 Total Creatine Kinase CK-MB (CK-2) CK-MB (CK-2) Rel Index Troponin I Total Protein 6.2 L Albumin 3.3 L Globulin 2.9 Albumin/Globulin Ratio 1.1 Lipase Urine Color Urine Appearance Urine pH Ur Specific [place] Urine Protein Urine Glucose (UA) Urine Ketones Urine Occult Blood Urine Nitrate Urine Bilirubin Urine Urobilinogen Ur Leukocyte Esterase Urine RBC Urine WBC Ur Squamous Epith Cells Ur Renal Epithelial Cell Urine Bacteria Ur Culture Indicated? Nasal Screen MRSA (PCR) SARS-CoV-2 (PCR) Influenza A (RT-PCR) Influenza B (RT-PCR) RSV (PCR) [facility] Medical History Carotid artery disease Cerebrovascular accident (CVA) (02/18/14) Chronic back pain Diverticulitis of intestine with abscess Diverticulitis of large intestine with abscess without bleeding (04/29/17) Measles Osteoarthritis (~2008) Partial blindness (~1999) Pyelonephritis Scarlet fever Skin cancer (~2009) Stroke (~2000) Supraventricular tachycardia (02/18/14) Vertigo Vision disorder Surgical History Anesthesia History of bilateral salpingo-oophorectomy (BSO) History of neck surgery (~1999) Status post appendectomy Status post hysterectomy (~1969) Family History Brother Cancer Child Age: 54 Heart disease Father Heart disease Stroke Mother Heart disease Liver disease Social History marital status: lives independently: Yes caregiver/support person: No Smoking Status: Current every day smoker alcohol intake: current substance use type: does not use Assessment & Plan Assessment and plan (1) Atrial fibrillation, new onset: Status: Acute (2) Pancreatic cancer: Status: Acute Plan Atrial fibrillation with rapid ventricular response new diagnosis echocardiogram today. Heart rates much improved will wean off the Cardizem drips and continue with metoprolol p.o.. We may need to increase the dose over the next day or so. Will review LV function and atrial size on echocardiogram she does have a systolic murmur. Will go ahead and stop her IV fluids. Blood pressure looks good. Electrolytes look okay recent thyroid test is normal. Patient has elected to cancel her appointments for further tissue diagnosis of the pancreatic mass so we will go ahead and place her on anticoagulation. Pancreatic mass patient with pancreatic mass concerning for pancreatic adenocarcinoma. Check tumor markers today. Long discussion with patient again in today regarding pancreatic mass. She was aware of this diagnosis before hospitalization and evaluation was arranged for her to see a Tuesday and Tuesday. As she is had more chance to think about it. Patient says that she does not want to go through interventions surgery or chemotherapy. We discussed about a tissue diagnosis and how this would be helpful to diagnose and plan for care. Patient states that she does not want to do that at this time. Would prefer to be comfortable at home and not go through invasive procedures or chemotherapy at her age. We discussed this with her and then had a phone conversation with her daughter. She says that she would prefer to have hospice support at home if needed order daughter's house. Acute kidney injury. Patient had acute kidney injury due to atrial fibrillation and rapid ventricular response and dehydration. Kidney function is improving back to baseline will stop her IV fluids at this point monitor kidney function and electrolytes. Constipation. Getting p.o. senna. Continue with milk of magnesia Hypertension blood pressure is well controlled. Code status. Patient is now no code. Prophylaxis will start DVT prophylaxis after administering dose of Pradaxa Disposition and plan. Heart rate is in improved. Echocardiogram today wean off Ileana montes vp digital marketing social media and crm visit for hospice consultation. Anticipate discharge home tomorrow Time Spent With Patient Critical Care time: I spent a total of [] minutes of critical care time on this patient's care today; this time is exclusive of procedural time.
[2022-04-02] MEDS: MAGNESIUM HYDROXIDE 30 ML UDC PO (12:00)
--- NOTE | 2022-04-02 14:02 | CM.DANOTE ---
Initial DCP Assessment Note Pt is an 82 yo female, resident of [place], recent diagnosis of pancreatic mass concerning for pancreatic cancer presents with persistent nausea, not eating, drinking, weak and cannot get out of bed PCP: Brian Ordonez Payer: [facility] Reviewed chart, according to Dr Ordonez, patient has opted for home w/dtr and hospice care rather than pursue outpatient f/u, surgery, chemo etc for her presumed pancreatic cancer Met w/patient and her dtr Noa, introduced self and role. Patient is uncomfortable today, states she is constipated and hoping to have a BM soon for relief. Patient confirms she is interested in a hospice referral; explains further that she and dtr have discussed plan and patient will discharge with her dtr Noa and ADELAIDE to their home in [place], Address: [address] [place] [address] [facility], has kindly agreed to send [facility] the referral Placed call to Gaby at [facility], discussed the referral and updated that patient will discharge home w/her family to [place], provided address. Patient will discharge home tomorrow via dtr to transport. Explained to patient/family that Hospice does not provide in home caregiving and advised they consider caregivers to assist patient as her needs increase, if family is not available 15/11 Plan: DC home w/family expected Tuesday04.03.22 and hospice to follow up, via family's vehicle CAMACHO Stone Discharge Planning/Care Management CM Discharge Assessment Start: 04/02/22 13:38 Freq: Status: Active Protocol: Document 04/02/22 13:38 SHASHANK (Rec: 04/02/22 14:02 SHASHANK [id number]) Discharge Planning Assessment Assigned Crib Pad Maker CAMACHO Estrada DPOA/Assigned Designee Name Noa Bottles, dtr Contact Information [phone] Advance Directives? No History Provided By Patient,Family Member,Medical Record Prior Living Arrangements House Household Members none Independent with ADL's Yes: Up until recently Is patient alert and oriented? Yes Barriers to Discharge No Comment Home w/dtr, family and hospice when available to start services Discharge Plan Hospice Transportation Arrangement family Additional Comment [facility]
--- NOTE | 2022-04-02 16:23 | DI.ECHO.S_ITS ---
Interpretation Summary 1) Normal left ventricular thickness, size, wall motion, and systolic function (EF 55-60%). 2) Normal right ventricular size and function. 3) Both atria are moderately dilated. A patent foramen ovale is present. 4) No significant valvular abnormalities. 5 Compared to the echo done 09/05/2013, PFO is noted on this study. Procedure: A two-dimensional transthoracic echocardiogram with color flow and Doppler was performed. The study quality was technically adequate. Comparison is made with the echocardiogram of 09/05/2013. Left Ventricle: The left ventricle is normal in size and wall thickness. Left ventricular systolic function is normal. The ejection fraction is estimated to be 55-60%. There are no focal wall motion abnormalities. Diastolic function could not be accurately assessed due to atrial fibrillation. Right Ventricle: The right ventricle is normal in size and function. Atria: Both atria are moderately dilated. A patent foramen ovale is present. Mitral Valve: The mitral valve is normal in structure and function. There is mild mitral regurgitation. Aortic Valve: The aortic valve is normal in structure and function. There is no aortic valve stenosis. No aortic regurgitation is present. Tricuspid Valve: The tricuspid valve is normal in structure and function. There is mild tricuspid regurgitation. The right ventricular systolic pressure is estimated to be at least 36 mmHg based on an estimated right atrial pressure of 3 mm Hg. Pulmonic Valve: The pulmonic valve is normal in structure and function. There is no pulmonic valvular regurgitation. Great Vessels: The aortic root is normal size. The dimensions of the ascending aorta are normal. The IVC is of normal diameter and collapses greater than 50% with a sniff. This suggests a low right atrial pressure of 3 mm Hg. Pericardium/ Pleura There is no pericardial effusion. There is no pleural effusion. MMode/2D Measurements & Calculations LVIDd: 4.2 cm LVOT diam: 1.8 cm LVIDs: 2.8 cm Ao root diam: 2.8 cm FS: 31.9 % asc Aorta Diam: 3.1 cm IVSd: 1.1 cm LVPWd: 1.1 cm LV bolaños. diameter/BSA (cm/m^2): 2.4 LV sys. diameter/BSA (cm/m^2): 1.6 LA A2 area: 23.8 cm2 RA long axis: 5.6 cm LA A4 area: 22.3 cm2 RA area: 20.9 cm2 LA length (vol): 6.3 cm RA vol: 66.9 ml LA vol: 71.9 ml RA : 37.9 ml/m2 LA vol index: 40.7 ml/m2 TAPSE: 2.0 cm Doppler Measurements & Calculations Ao V2 max: 108.6 cm/sec LVOT Max Naldo: 98.9 cm/sec Ao V2 mean: 82.6 cm/sec LV V1 max P.9 mmHg Ao max P.7 mmHg LV V1 VTI: 18.0 cm Ao mean P.0 mmHg FER(I,D): 2.4 cm2 Ao V2 VTI: 19.8 cm FER(V,D): 2.4 cm2 sev ratio: 0.91 FER indexed to BSA (cm^2/m^2): 1.4 TR max naldo: 285.2 cm/sec SV(LVOT): 47.4 ml TR max P.5 mmHg Reading Physician:05:02 PM
[2022-04-02 19:02] LABS: Carcinoembryonic Antigen 2.5 ng/mL (0.1-3.0)
[2022-04-02] MEDS: DABIGATRAN 75 MG CAPSULE 150 MG PO (20:41)
[2022-04-03] VITALS (8 sets, daily range): BP systolic 117–148; BP diastolic 62–85; PULSE 75–110; RESP 14–18; TEMP 36.2–36.8; O2SAT 96–98
[2022-04-03 04:58] LABS: Add Manual Diff / Slide Review NO; Basophils Absolute Auto 0 /uL (0-100); Basophils Percent Auto 0.6 % (0-2); Eosinophils Absolute Auto 400 /uL (0-450); Eosinophils Percent Auto 4.8 % (2-4); Hematocrit 35.4 % (36-46); Hemoglobin 11.8 g/dL (12.0-16.0); Lymphocytes Absolute Auto 1700 /uL (1100-4500); Lymphocytes Percent Auto 22.1 % (25-40); Mean Corpuscular HGB Conc 33.2 % (30-36); Mean Corpuscular Hemoglobin 28.9 PG (26-34); Mean Corpuscular Volume 86.9 fL (80-100); Monocytes Absolute Auto 800 /uL (0-900); Monocytes Percent Auto 10.4 % (3-14); Neutrophils Absolute Auto 4800 /uL (1500-7000); Neutrophils Percent Auto 62.1 % (50-75); Platelet Count 255 X10^3/uL (150-400); Red Blood Cell Count 4.08 X10^6/uL (4.0-5.2); Red Cell Distribution Width 14.1 % (11.6-14.8); White Blood Cell Count 7.7 X10^3/uL (4.5-11.0)
[2022-04-03 05:05] LABS: Alanine Aminotransferase 17 IU/L (<35); Albumin 3.4 g/dL (3.5-5.0); Albumin Globulin Ratio 1.3 (1.0-2.8); Alkaline Phosphatase 76 U/L (38-126); Aspartate Aminotransferase 17 IU/L (14-36); BUN Creatinine Ratio 8.3 (6-22); Bilirubin Total 0.5 mg/dL (0.2-1.3); Blood Urea Nitrogen 12 mg/dL (7-17); Calcium 8.8 mg/dL (8.4-10.2); Carbon Dioxide 25 mmol/L (22-32); Chloride 106 mmol/L (98-107); Estimated Glomerular Filt Rate 37 mL/min (>60); Globulin 2.7 g/dL (1.7-4.1); Glucose 101 mg/dL (80-110); HEMOLYSIS < 15 (0-50); Potassium 4.2 mmol/L (3.4-5.1); Sodium 139 mmol/L (137-145); Total Protein 6.1 g/dL (6.3-8.2)
[2022-04-03] MEDS: PANTOPRAZOLE DR 40 MG TABLET PO (06:30)
[2022-04-03] MEDS: DABIGATRAN 75 MG CAPSULE 150 MG PO ×2 (08:43→20:58)
[2022-04-03] MEDS: METOPROLOL ER 50 MG TABLET PO ×2 (08:43→12:34)
[2022-04-03 09:30] LABS: Cancer (Carbohydrate) Ag 19-9 179 U/mL (0-35)
--- NOTE | 2022-04-03 11:38 | PM.PN.1 ---
Subjective Subjective Date Patient Seen: 04/03/22 Time Patient Seen: 11:38 Interval history: Patient feeling well this morning. No chest pain. No dizziness no lightheadedness. Otherwise feeling well. Heart rates have been running in the 110s to 130s. No chest pain or other changes. Exam Vital Signs (past 8 hours): - 04/03/22 05:19 04/03/22 08:00 Temperature 98.2 F 97.6 F Pulse Rate 106 H 83 Respiratory Rate 18 14 Blood Pressure 148/85 H 147/81 H Pulse Oximetry 97 96 Oxygen Flow Rate 0 0 Oxygen Delivery Method Room Air Oxygen Flow Rate 0 Narrative Exam Narrative: Alert elderly female in no acute distress Lungs are clear heart is irregular with no murmurs clicks rubs or gallops Objective Labs Result Diagrams: 04/03/22 04:29 04/03/22 04:29 Labs: Laboratory Results - last 24 hr 04/02/22 04/02/22 04/03/22 04:23 04:23 04:29 WBC 7.7 RBC 4.08 Hgb 11.8 L Hct 35.4 L MCV 86.9 MCH 28.9 MCHC 33.2 RDW 14.1 Plt Count 255 Neut % (Auto) 62.1 Lymph % (Auto) 22.1 L [place] % (Auto) 10.4 Eos % (Auto) 4.8 H Baso % (Auto) 0.6 Neut # (Auto) 4800 Lymph # (Auto) 1700 [place] # (Auto) 800 Eos # (Auto) 400 Baso # (Auto) 0 Sodium Potassium Chloride Carbon Dioxide BUN Creatinine Estimated GFR BUN/Creatinine Ratio Glucose Calcium Total Bilirubin AST ALT Alkaline Phosphatase Total Protein Albumin Globulin Albumin/Globulin Ratio Carcinoembryonic Ag 2.5 CA 19-9 Antigen 179 H 04/03/22 04:29 WBC RBC Hgb Hct MCV MCH MCHC RDW Plt Count Neut % (Auto) Lymph % (Auto) [place] % (Auto) Eos % (Auto) Baso % (Auto) Neut # (Auto) Lymph # (Auto) [place] # (Auto) Eos # (Auto) Baso # (Auto) Sodium 139 Potassium 4.2 Chloride 106 Carbon Dioxide 25 BUN 12 Creatinine 1.44 H Estimated GFR 37 L BUN/Creatinine Ratio 8.3 Glucose 101 Calcium 8.8 Total Bilirubin 0.5 AST 17 ALT 17 Alkaline Phosphatase 76 Total Protein 6.1 L Albumin 3.4 L Globulin 2.7 Albumin/Globulin Ratio 1.3 Carcinoembryonic Ag CA 19-9 Antigen [facility] Medical History Carotid artery disease Cerebrovascular accident (CVA) (02/18/14) Chronic back pain Diverticulitis of intestine with abscess Diverticulitis of large intestine with abscess without bleeding (04/29/17) Measles Osteoarthritis (~2008) Partial blindness (~1999) Pyelonephritis Scarlet fever Skin cancer (~2009) Stroke (~1999) Supraventricular tachycardia (02/18/14) Vertigo Vision disorder Surgical History Anesthesia History of bilateral salpingo-oophorectomy (BSO) History of neck surgery (~1999) Status post appendectomy Status post hysterectomy (~1969) Family History Brother Cancer Child Age: 54 Heart disease Father Heart disease Stroke Mother Heart disease Liver disease Social History marital status: household members: none lives independently: Yes caregiver/support person: No Smoking Status: Current every day smoker alcohol intake: current substance use type: does not use Assessment & Plan Assessment & Plan narrative: Atrial fibrillation with rapid ventricular response. Off of her Cardizem. Rate still significantly elevated. The 130s with minimal activity. Blood pressure seems to be tolerating her beta-edelmira. Will increase to 100 mg today and hopefully things will go well. Will see how she does. No other changes. Echo still pending. Will see how that goes. Labs otherwise are stable. On anticoagulation. If stable tomorrow should be able to go home Pancreatic mass. Patient very clear does not want to do anything further. Will continue to follow and supportive care. Acute kidney injury improving with fluids. Seems to be stable. Baseline has been a little while off but trending that way. Constipation. Had bowel movement and feels much better. Hypertension. Blood pressure stable. Will follow. Code status. No code. DVT prophylaxis patient is on Pradaxa. Disposition. Home tomorrow. Time Spent With Patient Critical Care time: I spent a total of [] minutes of critical care time on this patient's care today; this time is exclusive of procedural time.
--- NOTE | 2022-04-03 12:00 | CM.DPC ---
DCP Cont: Per MD, pt still having some orthostatic issues and MD feels pt needs to remain overnight for stabilization and then likely d/c home with Dtr tomorrow Sun and [facility] to follow after discharge. Dtr aware of [facility] resources in case needed once home. Plan: SW to follow for keeping [facility] updated and fax d/c summary when pt medically stable for discharge, likely Sun via Dtr POV. CAMACHO Crockett
[2022-04-03] MEDS: TRIMETH/SULFA 160/800 (DS) TABLET 1 TAB PO ×2 (12:34→20:58)
[2022-04-03] MEDS: LIPASE/PROTEASE/AMYLASE 5/17/24 CAP PO ×2 (12:36→17:36)
[2022-04-03] MEDS: METOPROLOL ER 25 MG TABLET PO (17:36)
[2022-04-04] VITALS: BP 128/73; PULSE 87; RESP 17; TEMP 36.1; O2SAT 98
[2022-04-04 04:00] VITALS: BP 145/85; PULSE 89; RESP 17; TEMP 36.3; O2SAT 98
[2022-04-04] MEDS: ONDANSETRON 4 MG ODT SL (05:44)
[2022-04-04] MEDS: PANTOPRAZOLE DR 40 MG TABLET PO (06:05)
[2022-04-04 08:00] VITALS: BP 137/88; PULSE 85; RESP 17; TEMP 36.1; O2SAT 97
[2022-04-04 08:31] VITALS: BP 127/67; PULSE 91; RESP 16; TEMP 36.4; O2SAT 97
[2022-04-04 08:32] VITALS: BP 127/67; PULSE 91
[2022-04-04] MEDS: TRIMETH/SULFA 160/800 (DS) TABLET 1 TAB PO (08:32)
[2022-04-04] MEDS: METOPROLOL ER 50 MG TABLET 100 MG PO (08:32)
[2022-04-04] MEDS: SENNOSIDES 8.6 MG TABLET PO (08:32)
[2022-04-04] MEDS: LIPASE/PROTEASE/AMYLASE 5/17/24 CAP PO ×2 (08:32→12:23)
[2022-04-04] MEDS: DABIGATRAN 75 MG CAPSULE 150 MG PO (08:33)
[2022-04-04] MEDS: HYDROCODONE/ACET 5/325 TABLET 1 TAB PO (11:14)
[2022-04-04 12:00] VITALS: BP 128/81; PULSE 85; RESP 20; TEMP 36.6; O2SAT 96
--- NOTE | 2022-04-04 12:22 | PM.DS.1 ---
History of Present Illness History of Present Illness Date Patient Seen: 04/04/22 Time Patient Seen: 12: Date of Onset of Symptoms: 04/01/22 Chief complaint: Nausea, Weakness, Not eating/drinking Narrative: 82-year-old female history of hypertension hyperlipidemia carotid artery disease smoking history and recent diagnosis of pancreatic mass concerning for pancreatic cancer presents to the emergency department with weakness.? Patient was diagnosed a few weeks ago with a mass in the head of her pancreas found on ultrasound.? Further evaluation with MRI showed pancreatic mass concerning for adenocarcinoma of the head of the pancreas.? Since the diagnosis patient has been feeling more weak.? She was having some pretty consistent diarrhea and was started on pancreatic enzymes.? Diarrhea resolved in the last 3-4 days she is become more weak and having a hard time getting out of bed she is not been eating she is had a loss of appetite she is not having any chest pain.? She says she is had a little bit of a fast heart rate.? She normally takes metoprolol.? Her daughter visits her regularly and went over tonight and she could not get out of bed.? She was concerned so she brought her to the emergency department.? She is not complaining of cough or fevers or chills.? She is not have any chest pain.? Some mild shortness of breath.? She says she has no appetite.? And she is feeling quite weak.? She also says she is not had a bowel movement for a few days. Discharge Providers Provider Date of admission: 04/01/22 16:15 Discharge Date: 04/04/22 Primary care physician: Brian Ordonez MD Discharge provider: Lan Rodriguez MD Summary Hospital Course Discharge Diagnosis: Atrial fibrillation with rapid ventricular response Pancreatic mass UTI Acute kidney injury Constipation Hypertension Hospital Course: Atrial fibrillation with rapid ventricular response. Patient with presentation with fatigue but no real cardiac symptoms. Was found to be in the 130s. Was started on beta-edelmira which had been recently stopped. Initially not great control but patient was asymptomatic after day 1. She was increased to 100 mg in the morning and 50 at night and had adequate control. Still not at goal but was asymptomatic able to get up shower and 1 the hospital without significant dizziness lightheadedness other changes. [place] like she was able to do everything she needed to do at home. [place] it could be adjusted as an outpatient. Blood pressure stable and controlled on increase in medication. Will have to follow. Did have recent low blood pressure and beta-edelmira was stopped by think that was secondary to infection. Does not appear to be an issue at this time. Will be followed. Primary care can follow later this week and make adjustments as needed. Pancreatic mass. [place] to be pancreatic cancer. Patient at this point has decided not to workup. Will follow as needed. Will be followed as an outpatient. UTI. Patient with E coli during admission. Will be placed on 7 days of Bactrim and be followed. When seen later this week. Could be discontinued and urine checked to make sure cleared. Acute kidney injury. Seems to be resolving. Will follow as an outpatient. Can get labs later this week. Constipation resolved. Hypertension. Tolerating medicine today. Has not had issue with low blood pressure. Will be sent home on beta-edelmira. Status at Discharge Cognitive/behavioral status at discharge: oriented Functional status at discharge: independent ambulation Overall status at discharge: patient is progressing back to baseline Exam Vital Signs (past 8 hours): - 04/04/22 08:31 04/04/22 08:32 04/04/22 08:00 Temperature 97.6 F 96.9 F L Pulse Rate 91 H 91 H 85 Respiratory Rate 16 17 Blood Pressure 127/67 127/67 137/88 Pulse Oximetry 97 97 Oxygen Delivery Method Oxygen Flow Rate 0 0 04/04/22 08:15 Temperature Pulse Rate Respiratory Rate Blood Pressure Pulse Oximetry Oxygen Delivery Method Room Air Oxygen Flow Rate Oxygen Delivery Method Room Air Oxygen Flow Rate 0 Narrative Exam Narrative: Alert smiling interactive female no acute respiratory distress. Mucous membranes moist. Neck supple without adenopathy. Lungs clear heart irregular rate and rhythm under 100. Unchanged murmur. Abdomen is soft positive bowel sounds nontender extremities normal. Objective Labs Result Diagrams: 04/03/22 04:29 04/03/22 04:29 [facility] Medical History Carotid artery disease Cerebrovascular accident (CVA) (02/18/14) Chronic back pain Diverticulitis of intestine with abscess Diverticulitis of large intestine with abscess without bleeding (04/29/17) Measles Osteoarthritis (~2008) Partial blindness (~1999) Pyelonephritis Scarlet fever Skin cancer (~2009) Stroke (~1999) Supraventricular tachycardia (02/18/14) Vertigo Vision disorder Surgical History Anesthesia History of bilateral salpingo-oophorectomy (BSO) History of neck surgery (~1999) Status post appendectomy Status post hysterectomy (~1969) Family History Brother Cancer Child Age: 54 Heart disease Father Heart disease Stroke Mother Heart disease Liver disease Social History marital status: household members: none lives independently: Yes caregiver/support person: No Smoking Status: Current every day smoker alcohol intake: current substance use type: does not use Discharge Assessment & Plan Assessment and Plan Assessment: RVR improved but not completely resolved but asymptomatic. Tolerating increase in medicine. Feeling back Plan of Treatment: Discharge home. Discharge Plan Discharge Plan Patient Disposition: Home Discharge orders & Medications Prescriptions: New metoprolol succinate 50 mg Tablet Extended Release 24 Hr 100 mg PO DAILY Qty: 90 0RF sulfamethoxazole-trimethoprim 800-160 mg Tablet 1 tab PO BID Qty: 14 0RF dabigatran etexilate [Pradaxa] 75 mg Capsule 150 mg PO BID Qty: 60 3RF metoprolol succinate 50 mg tablet extended release 24 hr 50 mg PO DAILY Qty: 30 3RF Rx Instructions: one at night Continued Pancreaze 4,200-14,200- 24,600 unit capsule,delayed release(DR/EC) 2 cap PO TID Qty: 180 0RF Rx Instructions: do not exceed 10,000 unit/kg lipase per 24 hrs ondansetron 4 mg tablet,disintegrating 4 mg PO Q8H Qty: 20 0RF tramadol 50 mg tablet 50 mg PO BID PRN (Reason: pain) Qty: 14 0RF Discontinued metoprolol succinate 50 mg tablet extended release 24 hr 50 mg PO DAILY No Action (DME) Disabled Parking See Rx Instructions .ROUTE .MEDSUPPLY Qty: 1 0RF Rx Instructions: I find this patient to be medically disabled and qualified for Disabled Parking as indicated, and signed, on the Accompanying Disabled Parking Application for Individuals Follow up/Referrals: Brian Ordonez MD [Primary Care Provider] - 3-5 Days (Patient to call tomorrow for appointment) Discharge Health Status Multidrug resistant organism: No MDRO Diet/Activity/Treatments Diet: Diet as Tolerated Activity: As tolerated Visit Report/Discharge Packet Instructions: Pancreatic Cancer, Atrial Fibrillation, DI for Urinary Tract Infection (UTI), How to Prevent Falls Discharge Data Primary Care Provider: Brian Ordonez
--- NOTE | 2022-04-04 13:19 | CM.DPC ---
DCP Discharge Home with Hospice Per MD, pt is medically stable to d/c home today with Hospice to follow after discharge and no identified barriers to discharge. JAVIER spoke to Annemarie at [facility] and she confirms that she just completed Hospice Info Visit with pt and Dtr via phone and they remain in agreement to sign consents for Hospice and currently no DME needed. Pt plans to d/c back to her house in [place] and [facility] to complete intake at her house and initiate services and when pt needs more assist pt plans to move into Dtr's home in [place]. JAVIER faxed d/c summary to [facility] to review. Plan: Patient to d/c home via Dtr POV today with [facility] to start services after discharge. CAMACHO Crockett
--- NOTE | 2022-04-04 14:02 | PC.NURSE ---
Pt discharged home by private vehicle at 1350, escorted off floor, accompanied by hospital staff. IV removed, tele d/c'd, discharge teaching provided including follow up appointments and new medication regimen. Questions and concerns addressed. Pt left floor with all belongings.
== END 2022-04-04 14:05 | disposition hospice, home (50) | DRG 309 ==
LOC: ED 16:17 → AC 16:18 → ICU 17:39 → AC 04-02 22:10
PROVIDERS: Admitting Provider Family Medicine; Emergency Provider Emergency Medicine; Family Provider Family Medicine; PCP Family Medicine; Referring Provider Emergency Medicine; Visit Provider Family Medicine
DX: I48.91 Unspecified atrial fibrillation (principal); C25.9 Malignant neoplasm of pancreas, unspecified; N17.8 Other acute kidney failure; N39.0 Urinary tract infection, site not specified; K59.00 Constipation, unspecified; I10 Essential (primary) hypertension; B96.20 Unspecified Escherichia coli [E. coli] as the cause of diseases classified elsewhere; F17.200 Nicotine dependence, unspecified, uncomplicated; Z20.822 Contact with and (suspected) exposure to COVID-19
CPT/HCPCS: 0241U; 36415; 71045; 80053; 81001; 82378; 82550; 83690; 83735; 84484; 85025; 85610; 85730; 86301; 87077; 87086; 87186; 87797; 93005; 93010; 93306; 96365; 99222; 99232; 99284; A9270; J1650